=== PATIENT | female | born 1945 | race Caucasian/White ===

== ENCOUNTER 2017-04-19 01:25 | Emergency (ER) | payer OTHER ==
[~2017-04-19] VITALS: Ht 152.4 cm; Wt 71.8 kg
[~2017-04-19 01:25] MED LIST: ACET1TAB84 PO; ATOR10TA88 PO; ATV/1 PO; CLIN1GEL5 TOP; GABA-113 PO; LEVO75TA5 PO; LSN/10125 PO; RSTOPS OP; SENN8.6T7 PO; [UNRECOGNIZED DRUG - OTHER] OP
[2017-04-19 01:27] VITALS: TEMP 36.7; Ht 152.4 cm; Wt 71.8 kg
[2017-04-19] MEDS ORDERED: ONDANSETRON INJ 2 MG/ML 2 ML VIAL IV STA (01:42)
[2017-04-19] MEDS ORDERED: MoRPHine SULFATE 2 MG/ML CARP IV STA (01:42)
[2017-04-19] MEDS ORDERED: METHYLPREDNISOLONE 125 MG VIAL IV STA (01:42)
[2017-04-19] MEDS ORDERED: LORAZEPAM 2 MG/ML 1 ML VIAL IV STA (01:42)
--- NOTE | 2017-04-19 01:50 | EMERGENCY ROOM VISIT NOTE ---
History Report prepared by Mendoza: Paulie Florez Under the Supervision of: Dr. Stacie Zurita M.D. First contact with patient: 01:36 Chief Complaint: NECK PAIN Stated Complaint: NECK PAIN History of Present Illness The patient is a 72 year old female who presents to the Emergency Room with complaints of intermittent left-sided neck pain beginning yesterday. The patient states she woke up last night with head and neck pain. She reports her discomfort lasted for a few hours, but has returned. The patient notes her pain intermittently radiates to her left shoulder and left ear. She states rotating her neck increases her discomfort. She notes she was experiencing abdominal pain yesterday, but it has resolved. The patient denies fevers, vomiting, injury or trauma to the neck, and falling. She reports he has been taking arthritis Tylenol, but it is not helping. The patient notes her last dose of Tylenol was 5 hours ago. Source of History: patient Onset: yesterday Position: neck Timing: intermittent Modifying Factors (Worsening): movement (of neck) Associated Symptoms: + headache, No fevers, No vomiting Note: Associated symptoms: left shoulder and left ear pain Denies: injury or trauma to the neck and falling Review of Systems See HPI for pertinent positives & negatives. A total of 10 systems reviewed and were otherwise negative. Past Medical & Surgical Medical Problems: (1) CKD (chronic kidney disease), stage III (2) Dyslipidemia (3) HTN (hypertension) (4) Hypothyroidism Surgical Problems: (1) Heel spur (2) S/P appendectomy (3) S/P cholecystectomy (4) S/P lumbar fusion (5) S/P rotator cuff repair (6) S/P tonsillectomy Family History Cancer Gallbladder disease Lung disease Social History Smoking Status: Former Smoker Marital Status: Housing Status: lives with significant other Occupation Status: retired Current/Historical Medications Scheduled Acetaminophen (Tylenol Arthritis Ext Rel), 2 TAB PO BID Atorvastatin (Lipitor), 10 MG PO 3XWK Cyclosporine (Restasis Eye Drops), 1 DROP OP QAM Gabapentin (Neurontin), 300 MG PO HS Hctz/Lisinopril (Lisinopril/Hctz 10/12.5 Mg), 1 TAB PO DAILY Levothyroxine Sodium (Levothyroxine Sodium), 75 MCG PO QAM Lorazepam (Ativan), 1 MG PO HS Prednisone (Prednisone), 40 MG PO DAILY Sennosides-Docusate Sodium (Senokot S), 2 TAB PO HS [Duratears Op ], 1 DROP OP HS Scheduled PRN Clindamycin Phosphate (Topical (Clindamycin Phosphate), 1 APPLN TOP BID PRN for ROSACIA Cyclobenzaprine Hcl (Flexeril), 1 TAB PO TID PRN for spasm Allergies Coded Allergies: No Known Allergies (Unverified , 06/14/16) Physical Exam Vital Signs Date Time Temp Pulse Resp B/P (MAP) Pulse Ox O2 Delivery O2 Flow Rate FiO2 04/19/17 04:09 57 04/19/17 03:41 58 18 134/74 93 Room Air 04/19/17 01:27 36.7 67 20 149/80 95 Room Air Physical Exam Vital signs reviewed. General: Well-appearing 72 year old female, in no significant distress. HEENT: No scleral icterus, PERRLA, neck supple. Atraumatic. Discomfort with rotation of the neck. No rah appreciated, tenderness with forward flexion of neck. Cardiovascular: Regular rate and rhythm, no extra sounds. Pulmonary: Clear to auscultation bilaterally, normal work of breathing. Abdomen: Soft, nontender, nondistended, positive bowel sounds. Musculoskeletal: Atraumatic, no peripheral edema. Tenderness over the left trapezius muscle and the base of the occiput. Neurologic: Patient awake alert and oriented x 3, full strength in all 4 extremities. Cranial nerves 2 through 12 grossly intact. Skin: Warm, dry, no rash Medical Decision & Procedures ER Provider Diagnostic Interpretation: CT results as stated below per my review and radiologist interpretation: CT C SPINE: Normal alignment of cranial-cervical junction. Severe atlantodental osteoarthritis. No acute fractures or malalignment. Mild C4-C5, severe C5-C6 and C6-C7 disc degeneration. Posterior disc osteophyte complex at C5-C6 with mild spinal stenosis. Posterior disc and osteophyte at C6- C7 with at least mild spinal stenosis. Evaluation somewhat limited by because of artifact at lower cervical and upper thoracic spine. Minimal osseous foraminal narrowings. Severe right C6-C7 facet arthropathy. No prevertebral soft tissue swelling or paraspinous hematoma. Emphysema. Mixed lucency and sclerosis in the sphenoid body, most likely related to arrested pneumatization of the sphenoid sinuses. Radiologist: Peter Brooks MD Study ready at 0219 and initial results transmitted at 0231. CT HEAD: No acute intracranial hemorrhage, transcortical infarction or mass. Mild bilateral periventricular white matter low attenuation, most compatible with chronic small vessel ischemic disease. No acute fractures. Visualized paranasal sinuses and mastoids are clear. Hypoplastic left maxillary sinus. Remote bilateral cataract surgery. Radiologist: Peter Brooks MD Study ready at 0219 and initial results transmitted at 0235. Laboratory Results 04/19/17 02:13 Red Blood Count 3.77, Mean Corpuscular Volume 86.7, Mean Corpuscular Hemoglobin 27.6, Mean Corpuscular Hemoglobin Concent 31.8, Mean Platelet Volume 9.5, Neutrophils (%) (Auto) 54.1, Lymphocytes (%) (Auto) 29.2, Monocytes (%) (Auto) 10.1, Eosinophils (%) (Auto) 5.9, Basophils (%) (Auto) 0.6, Neutrophils # (Auto ) 3.92, Lymphocytes # (Auto) 2.12, Monocytes # (Auto) 0.73, Eosinophils # (Auto ) 0.43, Basophils # (Auto) 0.04 04/19/17 02:13 Test 04/19/17 02:13 White Blood Count 7.25 K/uL (4.8-10.8) Red Blood Count 3.77 M/uL (4.2-5.4) Hemoglobin 10.4 g/dL (12.0-16.0) Hematocrit 32.7 % (37-47) Mean Corpuscular Volume 86.7 fL (80-100) Mean Corpuscular Hemoglobin 27.6 pg (25-34) Mean Corpuscular Hemoglobin Concent 31.8 g/dl (32-36) Platelet Count 229 K/uL (130-400) Mean Platelet Volume 9.5 fL (7.4-10.4) Neutrophils (%) (Auto) 54.1 % Lymphocytes (%) (Auto) 29.2 % Monocytes (%) (Auto) 10.1 % Eosinophils (%) (Auto) 5.9 % Basophils (%) (Auto) 0.6 % Neutrophils # (Auto) 3.92 K/uL (1.4-6.5) Lymphocytes # (Auto) 2.12 K/uL (1.2-3.4) Monocytes # (Auto) 0.73 K/uL (0.11-0.59) Eosinophils # (Auto) 0.43 K/uL (0-0.5) Basophils # (Auto) 0.04 K/uL (0-0.2) RDW Standard Deviation 42.2 fL (36.4-46.3) RDW Coefficient of Variation 13.2 % (11.5-14.5) Immature Granulocyte % (Auto) 0.1 % Immature Granulocyte # (Auto) 0.01 K/uL (0.00-0.02) Anion Gap 8.0 mmol/L (3-11) Est Creatinine Clear Calc Drug Dose 34.6 ml/min Estimated GFR () 47.5 Estimated GFR (Non- 41.0 BUN/Creatinine Ratio 19.0 (10-20) Calcium Level 9.2 mg/dl (8.5-10.1) Total Bilirubin 0.3 mg/dl (0.2-1) Direct Bilirubin < 0.1 mg/dl (0-0.2) Aspartate Amino Transf (AST/SGOT) 16 U/L (15-37) Alanine Aminotransferase (ALT/SGPT) 17 U/L (12-78) Alkaline Phosphatase 149 U/L (45-117) Total Protein 7.0 gm/dl (6.4-8.2) Albumin 3.4 gm/dl (3.4-5.0) Laboratory results per my review. Medications Administered Medications (Trade) Dose Ordered Sig/Farhana Route Start Time Stop Time Status Last Admin Dose Admin Cyclobenzaprine HCl (Flexeril Tab) 5 mg NOW STAT PO 04/19/17 03:31 04/19/17 03:32 DC 04/19/17 03:49 5 MG Acetaminophen/ Hydrocodone Bitart ([place] 5/325mg Home Pack) 1 homepack UD ONCE PO 04/19/17 04:00 04/19/17 04:01 DC 04/19/17 04:00 1 HOMEPACK ED Course 0141: Past medical records reviewed. The patient was evaluated in room B03B. A complete history and physical examination was performed. 0142: Ordered Lorazepam 0.5mg IV, Solu-Medrol IV 125mg IV, Ondansetron HCl 4mg IV, Morphine Sulfate 2mg IV 0329: Upon reevaluation, the patient appeared to have improvement of her symptoms. She still has some minor discomfort. I discussed findings with her. She verbalized agreement of the treatment plan. The patient will be discharged home when she receives her medication. 0331: Ordered Flexeril Tab 2mg PO 0400: Ordered Hydrocodone Bitart/Acetaminophen 1 homepack PO Medical Decision The patient is a 72 year old female who presents to the ED with complaints of left-sided neck pain. Differentials include torticollis, cervical radiculopathy , cervical fracture, disc herniation, meningitis, shingles. This patient was evaluated and appeared to be in no significant distress. IV access was obtained and laboratory work was drawn. Patient was medicated with IV morphine, IV Ativan and IV Solu-Medrol. She had minimal improvement of symptoms. The patient continued to complain of discomfort and was medicated with 5 mg of oral Flexeril. CT scan of the neck was performed and is read as above. There is significant degenerative change and is likely contributing to the patient's torticollis. CT scan of the head was performed due to the headache and is negative. Patient was discharged with a prednisone taper and Flexeril to be used as needed. She was given a [place] home pack. The patient will follow-up with her physician this week and return to the ER for worsening of symptoms or any medical concerns. Medication Reconcilliation Current Medication List: was personally reviewed by me Blood Pressure Screening Patient's blood pressure: Elevated blood pressure Blood pressure disposition: Elevated BP felt to be situational Impression Primary Impression: Torticollis, acute Scribe Attestation The scribe's documentation has been prepared under my direction and personally reviewed by me in its entirety. I confirm that the note above accurately reflects all work, treatment, procedures, and medical decision making performed by me. Departure Information Dispostion Home / Self-Care Prescriptions Cyclobenzaprine Hcl (FLEXERIL) 5 Mg Tab 1 TAB PO TID Y for spasm for 7 Days, #21 TAB Prov: Stacie Zurita M.D. 04/19/17 Prednisone (Prednisone) 20 Mg Tab 40 MG PO DAILY, #8 TAB Prov: Stacie Zurita M.D. 04/19/17 Referrals Sandra Rm M.D. (PCP) Forms HOME CARE DOCUMENTATION FORM, IMPORTANT VISIT INFORMATION, WORK / SCHOOL INSTRUCTIONS Patient Instructions My [facility] Additional Instructions Diagnosis: Torticollis Prednisone 40 mg for 4 more days Flexeril 5 mg three times daily for 7 days NEEDED. [place] 1 tab every 6 hours as needed for severe pain. Warm compresses and gentle stretching. Follow up with your doctor this week for reevaluation. Return to the ED for worsening of symptoms or any medical concerns.
[2017-04-19 03:28] LABS: BASO % 0.6 %; BASO ABS # 0.04 K/uL (0-0.2); COMPLETE YES; EOS % 5.9 %; HEMATOCRIT 32.7 % (37-47); IG% 0.1 %; LYMPH % 29.2 %; LYMPH ABS # 2.12 K/uL (1.2-3.4); MEAN CELL VOLUME 86.7 fL (80-100); MEAN CORPUSCULAR HEMOGLOBIN 27.6 pg (25-34); MEAN CORPUSCULAR HGB CONC 31.8 g/dl (32-36); MEAN PLATELET VOLUME 9.5 fL (7.4-10.4); MONO % 10.1 %; NEUT % 54.1 %; PLATELET COUNT 229 K/uL (130-400); RED BLOOD COUNT 3.77 M/uL (4.2-5.4); WHITE BLOOD COUNT 7.25 K/uL (4.8-10.8)
[2017-04-19] MEDS ORDERED: CYCLOBENZAPRINE HCL 10 MG TAB PO STA (03:31)
[2017-04-19 03:41] VITALS: BP 134/74; O2SAT 93
[2017-04-19] MEDS ORDERED: HYDR-5688 PO (03:52)
[2017-04-19] MEDS ORDERED: PRED20TA PO (03:52)
[2017-04-19] MEDS ORDERED: CYCL5TAB PO (03:54)
[2017-04-19 03:58] LABS: BLOOD UREA NITROGEN 25 mg/dl (7-18); GLUCOSE 99 mg/dl (70-99); SODIUM 138 mmol/L (136-145)
[2017-04-19 03:59] LABS: CALCIUM 9.2 mg/dl (8.5-10.1); CARBON DIOXIDE 27 mmol/L (21-32); CHLORIDE 103 mmol/L (98-107); POTASSIUM 3.8 mmol/L (3.5-5.1)
[2017-04-19 04:00] LABS: ALKALINE PHOSPHATASE 149 U/L (45-117); ALT/SGPT 17 U/L (12-78); AST/SGOT 16 U/L (15-37)
[2017-04-19] MEDS ORDERED: NORCO 5/325MG HOME PACK PO ONE (04:00)
[2017-04-19 04:09] VITALS: PULSE 57
--- NOTE | 2017-04-19 07:31 | DIAGNOSTIC IMAGING REPORT ---
CERVICAL SPINE W/O CLINICAL HISTORY: 72 years-old Female presenting with L neck pain. TECHNIQUE: Multidetector CT of the cervical spine was performed without the use of intravenous contrast. IV contrast: None. A dose lowering technique was used consistent with the principles of ALARA (as low as reasonably achievable). COMPARISON: None. CT DOSE (mGy.cm): The estimated cumulative dose is 411.07 mGycm. FINDINGS: Cornetist topogram: Right shoulder reverse arthroplasty noted. Normal cervical lordosis. Multilevel degenerative changes most pronounced at C5-6, where there is intervertebral disc height loss and endplate sclerosis. Vertebral bodies maintain normal height and alignment. Small disc osteophyte complexes noted from C4-5 through C6-7. Degenerative changes of the atlantoaxial articulation. Disc osteophyte complex and uncovertebral hypertrophy result in mild right osseous neuroforaminal narrowing at C5-6 and minimal osseous neural foraminal narrowing on the left at C6-7. No osseous spinal canal narrowing. No acute fracture or subluxation. Regional soft tissues within normal limits. Lung apices demonstrate emphysema. IMPRESSION: 1. Multilevel degenerative changes most severe at C5-6, where there is mild right osseous neural foraminal narrowing. Electronically signed by: Javier Colon M.D. 04/19/2017 6:59 AM Dictated Date/Time: 04/19/2017 6:55 AM
--- NOTE | 2017-04-19 07:31 | DIAGNOSTIC IMAGING REPORT ---
CT HEAD WITHOUT CONTRAST (CT) CLINICAL HISTORY: Left-sided headache COMPARISON STUDY: No previous studies for comparison. TECHNIQUE: Axial CT of the brain is performed from the vertex to the skull base. IV contrast was not administered for this examination. A dose lowering technique was utilized adhering to the principles of ALARA. CT DOSE: 638.56 mGycm FINDINGS: No intra or extra-axial mass lesions are visualized. There is no CT evidence of acute cortical infarction. There is no evidence of midline shift. There is no acute hemorrhage. No calvarial fractures are visualized. There are minimal white matter hypodensities likely on a small vessel basis. There is no evidence of pathologic ventricular dilatation. There is no evidence of acute sinusitis IMPRESSION: No acute intracranial findings Electronically signed by: Clay Swan M.D. 04/19/2017 6:31 AM Dictated Date/Time: 04/19/2017 6:30 AM
== END 2017-04-19 04:00 | disposition home or self-care (01) ==
LOC: C.EDB 01:26
DX: M43.6 Torticollis (principal); M54.2 Cervicalgia; I12.9 Hypertensive chronic kidney disease with stage 1 through stage 4 chronic kidney disease, or unspecified chronic kidney disease; N18.3 Chronic kidney disease, stage 3 (moderate); E03.9 Hypothyroidism, unspecified; E78.5 Hyperlipidemia, unspecified; Z79.899 Other long term (current) drug therapy; Z87.891 Personal history of nicotine dependence

== ENCOUNTER 2017-12-02 15:52 | Emergency (ER) | payer OTHER ==
[~2017-12-02] VITALS: Ht 152.4 cm; Wt 70.9 kg
[~2017-12-02 15:52] MED LIST changes: +ATOR10TA82 PO; -ATOR10TA88 PO
[2017-12-02 15:55] VITALS: TEMP 36.6; Ht 152.4 cm; Wt 70.9 kg
[2017-12-02] MEDS ORDERED: ONDANSETRON INJ 2 MG/ML 2 ML VIAL IV STA (16:03)
[2017-12-02] MEDS ORDERED: SODIUM CHLORIDE 0.9% 1000ML 500 ML IV STA (16:03)
[2017-12-02] MEDS ORDERED: SODIUM CHLORIDE 0.9% 1000ML 1,000 ML IV STA (16:03)
[2017-12-02] MEDS ORDERED: FENTANYL CITRATE INJ 50 MCG/1 ML 2 ML VIAL IV PRN (16:15)
--- NOTE | 2017-12-02 16:24 | DIAGNOSTIC IMAGING REPORT ---
CHEST ONE VIEW PORTABLE HISTORY: Generalized abdominal pain. COMPARISON: Chest 09/22/2015. FINDINGS: The lungs are clear. Cardiac silhouette is normal in size. No pleural effusions. No pneumothorax. Right shoulder prosthesis. IMPRESSION: No acute process. Electronically signed by: Slim Horn M.D. 12/02/2017 4:23 PM Dictated Date/Time: 12/02/2017 4:22 PM
[2017-12-02] MEDS ORDERED: MULT-190 PO (16:39)
[2017-12-02 16:41] LABS: EOS % 0.1 %; EOS ABS # 0.01 K/uL (0-0.5); HEMATOCRIT 39.1 % (37-47); HEMOGLOBIN 13.1 g/dL (12.0-16.0); IG# 0.02 K/uL (0.00-0.02); LYMPH % 11.7 %; LYMPH ABS # 0.88 K/uL (1.2-3.4); MEAN CELL VOLUME 85.7 fL (80-100); MEAN CORPUSCULAR HEMOGLOBIN 28.7 pg (25-34); MEAN CORPUSCULAR HGB CONC 33.5 g/dl (32-36); MEAN PLATELET VOLUME 9.3 fL (7.4-10.4); MONO % 6.9 %; MONO ABS # 0.52 K/uL (0.11-0.59); NEUT ABS # 6.08 K/uL (1.4-6.5); PLATELET COUNT 233 K/uL (130-400); RED CELL DISTRIBUTION WIDTH CV 14.1 % (11.5-14.5); RED CELL DISTRIBUTION WIDTH SD 43.7 fL (36.4-46.3); WHITE BLOOD COUNT 7.51 K/uL (4.8-10.8)
[2017-12-02 16:59] LABS: ALBUMIN 3.5 gm/dl (3.4-5.0); ALT/SGPT 24 U/L (12-78); AST/SGOT 27 U/L (15-37); BLOOD UREA NITROGEN 34 mg/dl (7-18); CALCIUM 8.8 mg/dl (8.5-10.1); CARBON DIOXIDE 30 mmol/L (21-32); CREATININE 1.75 mg/dl (0.60-1.20); GLUCOSE 104 mg/dl (70-99); LIPASE 320 U/L (73-393); POTASSIUM 3.1 mmol/L (3.5-5.1); SODIUM 137 mmol/L (136-145)
[2017-12-02 17:04] LABS: ALKALINE PHOSPHATASE 138 U/L (45-117); TOTAL PROTEIN 7.6 gm/dl (6.4-8.2)
[2017-12-02] MEDS ORDERED: POTASSIUM CHLORIDE 10 MEQ TABCR PO STA (17:15)
[2017-12-02] MEDS ORDERED: FAMOTIDINE 20MG/5ML IV PUSH IV STA (17:15)
--- NOTE | 2017-12-02 17:20 | DIAGNOSTIC IMAGING REPORT ---
ABDOMEN AND PELVIS CT WITHOUT CONTRAST CT DOSE: 481.51 mGy.cm HISTORY: Upper abdominal pain, vomiting TECHNIQUE: Multiaxial CT images of the abdomen and pelvis were performed without contrast. A dose lowering technique was utilized adhering to the principles of ALARA. COMPARISON STUDY: None. FINDINGS: The lung bases are clear. No pneumoperitoneum. No pneumatosis. Posterior fusion of the lower lumbar spine. A 6 mm sclerotic focus within the T11 vertebral body. This likely represents a bone island. The unenhanced liver, spleen, adrenal glands, pancreas, and kidneys are unremarkable. No left-sided hydronephrosis. Mild urothelial thickening within the right renal pelvis and mild fullness within the right renal collecting system without hydronephrosis. The bladder is decompressed and not well visualized but appears unremarkable. Best seen on image 288 there is a 11 x 6 mm calcification within the right side of the pelvis. This appears to be within the distal right ureter just beyond the level of the iliac vessels. The uterus and bilateral adnexa are unremarkable. Suboptimal evaluation for bowel pathology due to the lack of intravenous and oral contrast. Colonic diverticulosis. No bowel wall thickening or obstruction. Fluid-filled small bowel and colon. IMPRESSION: 1. Fluid-filled nondilated small and large bowel. This favors a gastroenteritis. 2. No bowel wall thickening or obstruction. 3. An 11 x 6 mm calcification within the right side of the pelvis which appears to be within the distal right ureter. There is mild fullness within the right renal collecting system without [place] hydronephrosis and mild urothelial thickening of the right renal pelvis. This could be reactive to the stone or due to a superimposed pyelitis. Recommend correlation with urinalysis. Electronically signed by: Slim Horn M.D. 12/02/2017 5:19 PM Dictated Date/Time: 12/02/2017 5:06 PM
[2017-12-02] MEDS ORDERED: SODIUM CHLORIDE 0.9% 500ML 500 ML IV STA (18:19)
--- NOTE | 2017-12-02 19:00 | EMERGENCY ROOM VISIT NOTE ---
History Report prepared by Mendoza: Lonny Prado Under the Supervision of: Dr. Leonard Coleman M.D. First contact with patient: 15:57 Chief Complaint: ABDOMINAL PAIN Stated Complaint: STOMACH AND CHEST PAIN History of Present Illness The patient is a 72 year old female who presents to the Emergency Room with complaints of worsening upper abdominal pain starting yesterday. The patient states that additionally last night she was nauseous and dry heaving, and then last night she had diarrhea all night, and then this morning she started to vomit. She notes that vomiting helped to relive the pain. The patient reports that she has been having some chest pain into her back. She states that the pain feels like her gall bladder, though she has a history of a cholecystectomy. The patient states that she did not eat anything unusual, and she has not been around anyone else that is sick. She took Mylanta with no relief, and she states that yesterday she had a headache. Pt denies LOC, fevers , chills, diaphoresis, visual changes, neck pain, breathing difficulties, melena , hematochezia, urinary symptoms, numbness, weakness, lymphadenopathy, rash, or other complaints. Source of History: patient Onset: yesterday Position: abdomen (upper) Symptom Intensity: 510 Timing: worsening Modifying Factors (Relieving): other (vomiting) Associated Symptoms: + chest pain, + nausea, + vomiting, + back pain, + diarrhea Review of Systems See HPI for pertinent positives and negatives. A total of ten systems were reviewed and were otherwise negative. Past Medical & Surgical Medical Problems: (1) CKD (chronic kidney disease), stage III (2) Dyslipidemia (3) HTN (hypertension) (4) Hypothyroidism Surgical Problems: (1) Heel spur (2) S/P appendectomy (3) S/P cholecystectomy (4) S/P lumbar fusion (5) S/P rotator cuff repair (6) S/P tonsillectomy Family History Cancer Gallbladder disease Lung disease Social History Smoking Status: Never Smoker Marital Status: Housing Status: lives with significant other Occupation Status: retired Current/Historical Medications Scheduled Atorvastatin (Lipitor), 10 MG PO 3XWK Gabapentin (Neurontin), 300 MG PO HS Hctz/Lisinopril (Lisinopril/Hctz 10/12.5 Mg), 1 TAB PO DAILY Levothyroxine Sodium (Levothyroxine Sodium), 75 MCG PO QAM Lorazepam (Ativan), 1 MG PO HS Ocuvite Preservision (Ocuvite Preservision), 1 TAB PO DAILY Scheduled PRN Clindamycin Phosphate (Topical (Clindamycin Phosphate), 1 APPLN TOP BID PRN for ROSACIA Hydrocodone/Acetaminophen 5MG/325MG ([place] 5MG/325MG), 1-2 TABS PO Q6H PRN for Pain Ondansetron Hcl (Zofran), 4 MG PO Q6H PRN for Nausea Allergies Coded Allergies: No Known Allergies (Unverified , 12/02/17) Physical Exam Vital Signs Date Time Temp Pulse Resp B/P (MAP) Pulse Ox O2 Delivery O2 Flow Rate FiO2 12/02/17 19:34 76 16 119/72 98 Room Air 12/02/17 18:51 74 16 107/49 98 Room Air 12/02/17 16:56 78 18 110/58 96 Room Air 12/02/17 15:55 36.6 83 16 110/66 99 Room Air Physical Exam GENERAL: Awake, alert, uncomfortable-appearing, in no distress HENT: Normocephalic, atraumatic. Oropharynx unremarkable. EYES: Normal conjunctiva. Sclera non-icteric. NECK: Supple. No nuchal rigidity. FROM. No masses. RESPIRATORY: Clear to auscultation. No wheezes. No rales. Normal respiratory effort. CARDIAC: Normal rate. Normal rhythm. No murmurs. No rubs. Extremities warm and well perfused. Pulses equal. No JVD. GI: Diffuse tenderness worse in the epigastrium. Soft, non-distended. No rebound or guarding. No masses. RECTAL: Deferred. MUSCULOSKELETAL: Atraumatic. Chest examination reveals no tenderness. The back is symmetrical on inspection without obvious abnormality. There is no CVA tenderness to palpation. No joint edema. LOWER EXTREMITIES: Calves are equal size bilaterally and non-tender. No edema. No discoloration. NEURO: Normal sensorium. No sensory or motor deficits noted. SKIN: No rash or jaundice noted. Medical Decision & Procedures ER Provider Diagnostic Interpretation: Radiology results as stated below per my review and radiologist interpretation: CHEST ONE VIEW PORTABLE HISTORY: Generalized abdominal pain. COMPARISON: Chest 09/22/2015. FINDINGS: The lungs are clear. Cardiac silhouette is normal in size. No pleural effusions. No pneumothorax. Right shoulder prosthesis. IMPRESSION: No acute process. Electronically signed by: Silm Horn M.D. 12/02/2017 4:23 PM Dictated Date/Time: 12/02/2017 4:22 PM ABDOMEN AND PELVIS CT WITHOUT CONTRAST CT DOSE: 481.51 mGy.cm HISTORY: Upper abdominal pain, vomiting TECHNIQUE: Multiaxial CT images of the abdomen and pelvis were performed without contrast. A dose lowering technique was utilized adhering to the principles of ALARA. COMPARISON STUDY: None. FINDINGS: The lung bases are clear. No pneumoperitoneum. No pneumatosis. Posterior fusion of the lower lumbar spine. A 6 mm sclerotic focus within the T11 vertebral body. This likely represents a bone island. The unenhanced liver, spleen, adrenal glands, pancreas, and kidneys are unremarkable. No left-sided hydronephrosis. Mild urothelial thickening within the right renal pelvis and mild fullness within the right renal collecting system without hydronephrosis. The bladder is decompressed and not well visualized but appears unremarkable. Best seen on image 288 there is a 11 x 6 mm calcification within the right side of the pelvis. This appears to be within the distal right ureter just beyond the level of the iliac vessels. The uterus and bilateral adnexa are unremarkable. Suboptimal evaluation for bowel pathology due to the lack of intravenous and oral contrast. Colonic diverticulosis. No bowel wall thickening or obstruction. Fluid-filled small bowel and colon. IMPRESSION: 1. Fluid-filled nondilated small and large bowel. This favors a gastroenteritis. 2. No bowel wall thickening or obstruction. 3. An 11 x 6 mm calcification within the right side of the pelvis which appears to be within the distal right ureter. There is mild fullness within the right renal collecting system without [place] hydronephrosis and mild urothelial thickening of the right renal pelvis. This could be reactive to the stone or due to a superimposed pyelitis. Recommend correlation with urinalysis. Electronically signed by: Slim Horn M.D. 12/02/2017 5:19 PM Dictated Date/Time: 12/02/2017 5:06 PM Laboratory Results 12/02/17 16:15 Red Blood Count 4.56, Mean Corpuscular Volume 85.7, Mean Corpuscular Hemoglobin 28.7, Mean Corpuscular Hemoglobin Concent 33.5, Mean Platelet Volume 9.3, Neutrophils (%) (Auto) 81.0, Lymphocytes (%) (Auto) 11.7, Monocytes (%) (Auto) 6.9, Eosinophils (%) (Auto) 0.1, Basophils (%) (Auto) 0.0, Neutrophils # (Auto) 6.08, Lymphocytes # (Auto) 0.88, Monocytes # (Auto) 0.52, Eosinophils # (Auto) 0.01, Basophils # (Auto) 0.00 12/02/17 16:15 Test 12/02/17 16:15 12/02/17 18:25 White Blood Count 7.51 K/uL (4.8-10.8) Red Blood Count 4.56 M/uL (4.2-5.4) Hemoglobin 13.1 g/dL (12.0-16.0) Hematocrit 39.1 % (37-47) Mean Corpuscular Volume 85.7 fL (80-100) Mean Corpuscular Hemoglobin 28.7 pg (25-34) Mean Corpuscular Hemoglobin Concent 33.5 g/dl (32-36) Platelet Count 233 K/uL (130-400) Mean Platelet Volume 9.3 fL (7.4-10.4) Neutrophils (%) (Auto) 81.0 % Lymphocytes (%) (Auto) 11.7 % Monocytes (%) (Auto) 6.9 % Eosinophils (%) (Auto) 0.1 % Basophils (%) (Auto) 0.0 % Neutrophils # (Auto) 6.08 K/uL (1.4-6.5) Lymphocytes # (Auto) 0.88 K/uL (1.2-3.4) Monocytes # (Auto) 0.52 K/uL (0.11-0.59) Eosinophils # (Auto) 0.01 K/uL (0-0.5) Basophils # (Auto) 0.00 K/uL (0-0.2) RDW Standard Deviation 43.7 fL (36.4-46.3) RDW Coefficient of Variation 14.1 % (11.5-14.5) Immature Granulocyte % (Auto) 0.3 % Immature Granulocyte # (Auto) 0.02 K/uL (0.00-0.02) Anion Gap 8.0 mmol/L (3-11) Est Creatinine Clear Calc Drug Dose 25.5 ml/min Estimated GFR () 33.1 Estimated GFR (Non- 28.6 BUN/Creatinine Ratio 19.1 (10-20) Calcium Level 8.8 mg/dl (8.5-10.1) Total Bilirubin 0.6 mg/dl (0.2-1) Direct Bilirubin 0.1 mg/dl (0-0.2) Aspartate Amino Transf (AST/SGOT) 27 U/L (15-37) Alanine Aminotransferase (ALT/SGPT) 24 U/L (12-78) Alkaline Phosphatase 138 U/L (45-117) Troponin I < 0.015 ng/ml (0-0.045) Total Protein 7.6 gm/dl (6.4-8.2) Albumin 3.5 gm/dl (3.4-5.0) Lipase 320 U/L (73-393) Urine Color YELLOW Urine Appearance CLEAR (CLEAR) Urine pH 5.0 (4.5-7.5) Urine Specific [place] 1.014 (1.000-1.030) Urine Protein NEG (NEG) Urine Glucose (UA) NEG (NEG) Urine Ketones NEG (NEG) Urine Occult Blood NEG (NEG) Urine Nitrite NEG (NEG) Urine Bilirubin NEG (NEG) Urine Urobilinogen NEG (NEG) Urine Leukocyte Esterase LARGE (NEG) Urine WBC (Auto) >30 /hpf (0-5) Urine RBC (Auto) 0-4 /hpf (0-4) Urine Hyaline Casts (Auto) 5-10 /lpf (0-5) Urine Epithelial Cells (Auto) 10-20 /lpf (0-5) Urine Bacteria (Auto) NEG (NEG) Laboratory results reviewed by me Medications Administered Medications (Trade) Dose Ordered Sig/Farhana Route Start Time Stop Time Status Last Admin Dose Admin Sodium Chloride 1,000 ml @ 125 mls/hr Q8H STAT IV 12/02/17 16:03 12/03/17 00:02 12/02/17 16:03 125 MLS/HR Sodium Chloride 500 ml @ 999 mls/hr Q31M STAT IV 12/02/17 16:03 12/02/17 16:33 DC 12/02/17 16:03 999 MLS/HR Ondansetron HCl (Zofran Inj) 4 mg NOW STAT IV 12/02/17 16:03 12/02/17 16:05 DC 12/02/17 16:31 4 MG Fentanyl Citrate (Fentanyl Inj) 50 mcg Q20M PRN IV 12/02/17 16:15 12/16/17 16:14 12/02/17 16:32 50 MCG Famotidine (Pepcid 20mg Iv Push) 20 mg ONE STAT IV 12/02/17 17:15 12/02/17 17:16 DC 12/02/17 17:30 20 MG Potassium Chloride (Klor-Con M10) 20 meq NOW STAT PO 12/02/17 17:15 12/02/17 17:16 DC 12/02/17 17:15 20 MEQ Sodium Chloride 500 ml @ 999 mls/hr Q31M STAT IV 12/02/17 18:19 12/02/17 18:49 DC 12/02/17 18:20 999 MLS/HR Ondansetron HCl (ZOFRAN ODT 4MG Home Pack) 1 homepack UD ONCE PO 12/02/17 19:30 12/02/17 19:31 DC 12/02/17 19:25 1 HOMEPACK Lidocaine HCl (Viscous Lidocaine 2% Soln) 20 ml STK-MED ONCE .ROUTE 12/02/17 19:23 12/02/17 19:24 DC 12/02/17 19:28 10 ML Al Hydroxide/Mg Hydroxide (Maalox Susp) 30 ml STK-MED ONCE .ROUTE 12/02/17 19:24 12/02/17 19:25 DC 12/02/17 19:30 30 ML ECG Per My Interpretation Indication: chest pain Rate (beats per minute): 83 Rhythm: normal sinus Findings: nonspecific-ST abn, left axis deviation, no ectopy ED Course 1557: The patient was evaluated in room B11. A complete history and physical exam was performed. 1603: Zofran 4mg IV, Sodium Chloride 500 ml @ 999 mls/hr IV, Sodium Chloride 1000 ml @ 125 mls/hr IV 1615: Fentanyl 50mcg IV 1715: Potassium Chloride 20meq PO, Famotidine 20mg IV 1716: I reevaluated the patient, and she feels better. She is getting a PO challenge and getting a urine sample. 1819: Sodium Chloride 500 ml @ 999 mls/hr IV 1917: Reassessed the patient and she feels well. She does note a little bit of reflux symptoms. She has had this in the past. GI cocktail ordered 1914: Discussed the case with urology, Dr. Forrest. Close outpatient follow-up was recommended. As the patient does not have a fever or white count antibiotics were not recommended. 1939: Patient reassessed and feels well. Reflux resolved. She desires to be discharged. Home pack of [place] and Zofran given. Medical Decision Prior records/ancillary studies reviewed. Triage Nursing notes reviewed and agree them. Additional history obtained from the family. The patient's history was concerning for nausea, vomiting, diarrhea, and abdominal pain. Differential diagnosis: Etiologies such as gastroenteritis, food borne illness, infections, appendicitis , diverticulitis, inflammatory bowel disease, GI bleed, biliary pathology, cardiac sources, renal colic, as well as others were entertained. Physical examination findings: As above. Mild diffuse but mostly focal epigastric tenderness to palpation ER treatment provided: IV hydration with NSS. IV Zofran IV fentanyl On reassessment the patient felt better. Patient was tolerating p.o. intake. Oral potassium GI cocktail Diagnostics interpretation by me: ECG: Normal sinus with left axis deviation. Nonspecific ST abnormality. When compared to September 22, [address] abnormalities worse in the lateral leads The labs revealed a normal CBC and chemistry panel except for slight hypokalemia and slight worsening of her renal function which is likely related to dehydration. Cardiac markers negative. Urine dip negative. Imaging studies: Chest x-ray and CT scan as above The patient is doing very well after the above treatment. She is tolerating oral fluids and crackers. She was questioned about the possible right sided calculus. She does note having back pain issues for some time but noted that they were worse over the last few days. It is possible that she was passing a stone. There is no clear signs of infection. This was discussed with urology and conservative management was recommended. She does have diarrhea and this is notable on CT with the fluid filled colon. Cardiac etiologies seem unlikely given the findings and negative troponin. Her epigastric discomfort is been present since yesterday. Conservative management was discussed. The patient feels comfortable. Patient will be referred to urology as well regarding the stone. Prescription Zofran was discussed. Analgesia discussed as well. By the evaluation outlined above other emergent etiologies such as those listed in the differential, as well as others, were deemed relatively unlikely. The patient was educated about the findings as listed above. All questions were answered and the patient was pleased with the treatment. Return instructions were outlined and the patient was discharged in stable condition. The patient was referred to her PCP and urology for follow-up for a recheck of the current condition. Medication Reconcilliation Current Medication List: was personally reviewed by me Blood Pressure Screening Patient's blood pressure: Normal blood pressure Consults Consulting Physician: Dr. Forrest Discussed case, presentation, laboratory and diagnostic imaging. As the patient had an atypical presentation for ureterolithiasis, lacks fever, and has no white count antibiotic or urgent intervention was felt to be not appropriate. Close follow-up in the office was felt to be the appropriate management. Patient feels comfortable with this plan. She will call the office tomorrow. Impression Primary Impression: Nausea vomiting and diarrhea Additional Impression: Ureterolithiasis Scribe Attestation The scribe's documentation has been prepared under my direction and personally reviewed by me in its entirety. I confirm that the note above accurately reflects all work, treatment, procedures, and medical decision making performed by me. Departure Information Dispostion Home / Self-Care Prescriptions Ondansetron Hcl (ZOFRAN) 4 Mg Tab 4 MG PO Q6H Y for Nausea, #6 TAB Prov: Leonard Coleman MD 12/02/17 Hydrocodone/Acetaminophen 5MG/325MG ([place] 5MG/325MG) Tab 1-2 TABS PO Q6H Y for Pain, #10 TAB Prov: Leonard Coleman MD 12/02/17 Referrals Sandra Rm M.D. (PCP) Patient Instructions My [facility] Additional Instructions DO NOT drive, drink alcohol, operate machinery, or perform dangerous activities today. You were given medications in the ER that can affect your ability to safely function or operate a vehicle. Zofran(odansetron) tablets 4mg: Take one and allow it to dissolve in your mouth every four hours as needed for nausea or vomiting. Acetaminophen(Tylenol) may be used for fever or mild pain. Use 1000mg every eight hours as needed. Avoid using more than 3000mg in a 24 hour period. This is available over the counter. Hydrocodone/acetaminophen 5 mg/325 mg: Take 1 or 2 pills every 6 hours as needed for severe pain. Do not mix with other doses of Tylenol. If you take more than 2-3 doses it is recommended to use an [id number] stool softener such as Colace to avoid constipation. Do not drive if taking. Do not drink alcohol with this medication. Read all the package inserts or medication information paperwork provided. If you have any questions or concerns call your primary provider, pharmacist or the ER for assistance. Strain your urine and collect all the stones or debris for the follow up appointment. Rest and avoid strenuous activity until your symptoms resolve. Drink plenty of fluids. Continue current medications. Return to the ER for worsening abdominal or back pain, vomiting, fevers, passing out, chest pain, or as needed. Follow up with [facility] tomorrow, [phone], to arrange a visit Follow-up with your primary care office tomorrow to set an appointment for this week for recheck. Problem Qualifiers
[2017-12-02] MEDS ORDERED: GI COCKTAIL PO STA (19:18)
[2017-12-02] MEDS ORDERED: LIDOCAINE HCL 2% VISC SOLN 20 ML UDC ONE (19:23)
[2017-12-02] MEDS ORDERED: ALUMINUM/MAGNESIUM SUSP 30 ML UDC ONE (19:24)
[2017-12-02] MEDS ORDERED: ONDANSETRON HOME PACK 4MG OD TAB PO ONE (19:30)
[2017-12-02] MEDS ORDERED: HYDR-5688 PO (19:33)
[2017-12-02] MEDS ORDERED: ONDA4TAB46 PO (19:33)
[2017-12-02 19:34] VITALS: BP 119/72; PULSE 76; O2SAT 98
[2017-12-02] MEDS ORDERED: NORCO 5/325MG HOME PACK PO ONE (19:45)
--- NOTE | 2017-12-04 18:32 | Pharmacy Progress Note ---
ED Pharmacist Culture FollowUp Date of Service: December 04, 2017. Called urology [phone] to see if patient has an appointment - she is scheduled for one, but not until December 20. Called patient regarding urine culture. Patient noted slow improvement since being here, but persistent diarrhea. She notes she has felt warm, but has taken her temperature during those times and it has been normal. Patient denied increased pain or continued vomiting. She notes she has been able to urinate and is straining her urine but has not noticed a stone. Counseled that patient should be started on outpatient antibiotics but that she should return to the ED if she develops fever, increased pain, renewed vomiting or any worsening of symptoms. Patient acknowledged understanding and expressed comfort with the plan. Prescription for ciprofloxacin 250 mg po BID x7 days, 0 refill, called to [facility] at the patient's request. Case discussed with Dr. Miller, who is the prescribing provider.
== END 2017-12-02 19:50 | disposition home or self-care (01) ==
LOC: C.EDB 15:53
DX: N20.1 Calculus of ureter (principal); R19.7 Diarrhea, unspecified; N18.3 Chronic kidney disease, stage 3 (moderate); I12.9 Hypertensive chronic kidney disease with stage 1 through stage 4 chronic kidney disease, or unspecified chronic kidney disease; E03.9 Hypothyroidism, unspecified; E78.5 Hyperlipidemia, unspecified; Z90.49 Acquired absence of other specified parts of digestive tract; Z79.899 Other long term (current) drug therapy; Z83.79 Family history of other diseases of the digestive system

== ENCOUNTER 2019-09-04 01:25 | Inpatient (IN) ==
--- OUTSIDE RECORDS SUMMARY | 2019-09-04 01:28 | External Medical Summary | Continuity of Care Document ---
:1945 Author Name Clau Farias, Provider Address Unavailable Unavailable , Care Team Providers Name Role Phone Unavailable Unavailable Unavailable WILDER BROOKS Mary Grace Unavailable Unavailable Unavailable Unavailable Unavailable Problems Calculus of kidney (592.0) (N20.0) Hypertension (401.9) (I10) Nephrolithiasis (592.0) (N20.0) High cholesterol (272.0) (E78.00) Hydronephrosis (591) (N13.30) Gross hematuria (599.71) (R31.0) Ureteric stone (592.1) (N20.1) Arthritis (716.90) (M19.90) Allergies and Adverse Reactions No Known Drug Allergies (Allergy) Medications LORazepam 1 MG Oral Tablet , M.D. Refills: 0 Lisinopril-hydroCHLOROthiazide 20-12.5 MG Oral Tablet , M.D. Refills: 0 Oxybutynin Chloride 5 MG/5ML Oral Syrup , M.D. Refills: 0 Procedures History of Back Surgery Status: Complete d History of Shoulder Surgery Status: Comp leted History of Section Status: Comp leted History of gallbladder surgery Status: C ompleted Immunizations Immunizations not documented Family History Mother Family history of colon cancer (V16.0) (Z80.0) Status: Activ e Family history of kidney stones (V18.69) (Z84.1) Status: Act theo Social History - Smoking Status Former smoker Plan of Treatment Planned Observations Planned Goals not documented Results No Known Results Results not documented Encounters Appointment; Chase Barriga M.D. 11-Jan-2018 11:20 Encounter Diagnosis: Problem not documented Appointment; Hank Wall II, DO 09-Jan-2018 11:20 Encounter Diagnosis: Problem not documented Appointment; Hank Wall II, DO 20-Dec-2017 11:00 Encounter Diagnosis: Problem not documented
--- OUTSIDE RECORDS SUMMARY | 2019-09-04 01:28 | External Medical Summary | Continuity of Care Document ---
:1945 Author Name Clau Farias, Provider Address Unavailable Unavailable , Care Team Providers Name Role Phone Unavailable Unavailable Unavailable CHIO BROOKSVirgil Brody Unavailable Unavailable Unavailable Unavailable Unavailable Problems Nephrolithiasis (592.0) (N20.0) Arthritis (716.90) (M19.90) Hypertension (401.9) (I10) Calculus of kidney (592.0) (N20.0) High cholesterol (272.0) (E78.00) Hydronephrosis (591) (N13.30) Ureteric stone (592.1) (N20.1) Gross hematuria (599.71) (R31.0) Allergies and Adverse Reactions No Known Drug [...] documented Family History Mother Family history of kidney stones (V18.69) (Z84.1) Status: Act theo Family history of colon cancer (V16.0) (Z80.0) Status: Activ e Social History - Smoking Status Former smoker [...]
[2019-09-04 02:16] LABS: Basophils # (auto) 0.03 K/uL (0-0.2); Basophils % (auto) 0.3 %; Eosinophils # (auto) 0.24 K/uL (0-0.5); Eosinophils % (auto) 2.3 %; Hematocrit (blood only) 36.4 % (37-47); Hemoglobin 11.9 g/dL (12.0-16.0); Immature Granulocytes # (auto) 0.06 K/uL (0.00-0.02); Immature Granulocytes % (auto) 0.6 %; Lymphocytes # (auto) 1.43 K/uL (1.2-3.4); Lymphocytes % (auto) 13.6 %; Mean Corpuscular Hemoglobin 28.7 pg (25-34); Mean Corpuscular Hgb Conc 32.7 g/dL (32-36); Mean Corpuscular Volume 87.7 fL (80-100); Mean Platelet Volume 10.2 fL (7.4-10.4); Monocytes # (auto) 1.14 K/uL (0.11-0.59); Monocytes % (auto) 10.9 %; Neutrophils % (auto) 72.3 %; Platelet Count 230 K/uL (130-400); RDW Coefficient of Variation 13.5 % (11.5-14.5); RDW Standard Deviation 43.4 fL (36.4-46.3); Red Blood Count 4.15 M/uL (4.2-5.4)
[2019-09-04] MEDS: SODIUM CHLORIDE 0.9% 1000ML 1,000 ML IV SCH ×2 (02:18→07:09)
[2019-09-04] MEDS ORDERED: ALBUT/IPRATROP 3MG/0.5MG NEB 3 ML VIAL NEB STA ×2 (02:18→04:27)
[2019-09-04 02:42] LABS: Alanine Aminotransferase 40 U/L (12-78); Albumin Globulin Ratio 0.6 (0.9-2); Albumin Level 2.9 gm/dl (3.4-5.0); Alkaline Phosphatase 168 U/L (45-117); Aspartate Aminotransferase 51 U/L (15-37); BUN Creatinine Ratio 12.6 (10-20); Bilirubin,Total 0.4 mg/dl (0.2-1); Blood Urea Nitrogen 16 mg/dl (7-18); Calcium 9.4 mg/dl (8.5-10.1); Carbon Dioxide 26 mmol/L (21-32); Chloride 102 mmol/L (98-107); Creatinine Clr Calc Pharmacy 34.4 ml/min; Est GFR (African American) 47.7; Est GFR (Non-African American) 41.1; Globulin 4.5 gm/dl (2.5-4.0); Glucose 110 mg/dl (70-99); NT Pro B Type Natriuretic Pept 366 pg/ml (0-900); Sodium 135 mmol/L (136-145); Total Protein 7.4 gm/dl (6.4-8.2); Troponin I < 0.015 ng/ml (0-0.045)
[2019-09-04 02:48] LABS: Influenza A virus by PCR Neg for Influ A (Neg); Influenza B virus by PCR Neg for Influ B (Neg)
[2019-09-04] MEDS ORDERED: OPTIRAY 320 125ml IV PRN (03:23)
[2019-09-04 03:35] LABS: Appearance Urine Clear (Clear); Bacteria Urine Automated Negative (Negative); Bilirubin Urine Negative (Negative); Blood Urine Trace (Negative); Cast Urine Automated 0 /lpf (0-5); Color Urine Yellow; Glucose Urine UA Negative (Negative); Ketones Urine Negative (Negative); Leukocyte Esterase Urine 2+ (Negative); Nitrite Urine Negative (Negative); Protein Urine 1+ (Negative); RBC Urine Automated 0-4 /hpf (0-4); Urobilinogen Urine Negative (Negative)
[2019-09-04] MEDS ORDERED: cefTRIAXone SODIUM 1,000 MG/50 ML BAG IV STA (03:58)
[2019-09-04] MEDS ORDERED: AZITHROMYCIN 250 MG TAB PO ONE (03:58)
[2019-09-04] MEDS ORDERED: SODIUM CHLORIDE 0.9% 1000ML 1,000 ML IV ONE ×2 (03:58→06:30)
[2019-09-04 04:38] LABS: Base Excess ABG -0.6 mEq/L (-9-1.8); HCO3 ABG 25 mmol/L (19-24); PCO2 ABG 42 mmHg (35-46); PO2 ABG 54 mmHg (80-95); pH ABG 7.38 (7.35-7.45)
[2019-09-04] MEDS ORDERED: methylPREDNISolone 40 MG in SYRINGE 0 ML IV STA (04:41)
[2019-09-04 04:48] LABS: Allen Test POS (Pos)
[2019-09-04 04:49] LABS: Oxygen Saturation ABG 88.4 % (90-95)
[2019-09-04] MEDS ORDERED: METOPROLOL TARTRATE 1 MG/ML VIAL IV STA (04:56)
--- NOTE | 2019-09-04 04:56 | History & Physical Report ---
Date of Service September 04, 2019 Assessment & Plan (1) Acute hypoxemic respiratory failure: Secondary to community-acquired bronchopneumonia No sepsis for now hypertension, elevated secondary illness CRI, creatinine at baseline Hyperglycemia rule out DM past tobacco abuse Medical telemetry Supplemental O2 Solu-Medrol 1 dose for pneumonia causing hypoxemia due to bronchospasm Ceftriaxone, Doxycycline, nebs PRN Check hemoglobin A1c DVT prophylaxis Heparin subcu Full code History of Present Illness Chief Complaint: Cough, shortness of breath Primary Care Provider: Sandra Rm MD History obtained from patient and records. Medical history significant for hypertension, hyperlipidemia, CRI (baseline creatinine 1.2-1.3), past tobacco abuse. Recent confinement 2015 under Orthopedics service for elective back surgery. 1 week history of sinus congestion followed by cough productive of yellow-green sputum, body aches. No known sick contacts. No aspiration. At the ER, O2 sats noted to be in the 80s. Patient received ceftriaxone and azithromycin for pneumonia. Medical History as above Surgical History : Breast lesion excision, section, cholecystectomy, back surgery, appendectomy, heel spur removal, tonsillectomy, cataract surgery Family History : Lung cancer, heart disease, asthma Personal/Social history : Past tobacco abuse, no EtOH intake, retired from factory work Allergies Allergy/AdvReac Type Severity Reaction Status Date / Time No Known Allergies Allergy Unverified 09/04/19 05:22 Home Medications Home Medications Medication Instructions Recorded Confirmed Type azithromycin 250 mg PO UD 09/04/19 09/04/19 History levothyroxine 100 mcg PO DAILY 09/04/19 09/04/19 History lisinopril 10 mg PO DAILY 09/04/19 09/04/19 History lorazepam 1 mg PO HS PRN 09/04/19 09/04/19 History omeprazole 20 mg PO DAILY 09/04/19 09/04/19 History oxybutynin chloride 10 mg PO DAILY 09/04/19 09/04/19 History Past Med/Surg History Medical History CKD (chronic kidney disease), stage III (Chronic) Dyslipidemia (Chronic) HTN (hypertension) (Chronic) Hypothyroidism (Chronic) Left lumbar radiculopathy (Acute) Surgical History S/P appendectomy (Chronic) S/P cholecystectomy (Chronic) S/P tonsillectomy (Chronic) Social History Preferred Language: Norwegian Communication Ability: Effective Film Replacement Orderer Required: No Beliefs That Will Affect Care: None Current Living Situation: Spouse Other Information That Helps Us Care for You: No Feels Safe at Home: Yes Smoking Status: Former smoker Hx Alcohol Use: No Hx Substance Use: No Review of Systems Review of Systems: As per HPI, all 10 systems reviewed, all other ROS negative Physical Exam Physical Exam: GENERAL: Comfortable, slightly hard of hearing, minimal respiratory distress, pleasant, obese SKIN: Normal color, warm HEENT: [place] palpebral conjunctivae, no ptosis, dry buccal mucosa, nasal cannula in place NECK : Supple, no tenderness CHEST : Decreased breath sounds, occasional expiratory wheezes, no tenderness HEART : Tachycardic , no obvious murmurs ABDOMEN: Some distention, nontender EXTREMITIES : No LE swelling/tenderness, no other conspicuous deformities noted NEUROLOGIC : Coherent, no facial asymmetry, slightly hard of hearing, no other gross focality Results & Data Vital Signs (Past 12 Hours) Vital Signs Temp Pulse Pulse Resp BP Pulse Ox 09/04/19 04:39 106 H 24 89 L 09/04/19 03:21 108 H 21 162/85 H 91 09/04/19 03:00 106 H 31 H 186/95 H 93 09/04/19 02:29 105 H 20 91 09/04/19 02:00 105 H 25 H 175/86 H 93 09/04/19 01:46 110 H 17 134/93 90 09/04/19 01:34 37.2 C 111 H 18 159/76 H 92 Laboratory Results Laboratory Results WBC 10.50 K/uL (4.8-10.8) 09/04/19 02:00 RBC 4.15 M/uL (4.2-5.4) L 09/04/19 02:00 Hgb 11.9 g/dL (12.0-16.0) L 09/04/19 02:00 Hct 36.4 % (37-47) L 09/04/19 02:00 MCV 87.7 fL (80-100) 09/04/19 02:00 MCH 28.7 pg (25-34) 09/04/19 02:00 MCHC 32.7 g/dL (32-36) 09/04/19 02:00 RDW Std Deviation 43.4 fL (36.4-46.3) 09/04/19 02:00 RDW Coeff of Amber 13.5 % (11.5-14.5) 09/04/19 02:00 Plt Count 230 K/uL (130-400) 09/04/19 02:00 MPV 10.2 fL (7.4-10.4) 09/04/19 02:00 Immature Gran % (Auto) 0.6 % 09/04/19 02:00 Neut % (Auto) 72.3 % 09/04/19 02:00 Lymph % (Auto) 13.6 % 09/04/19 02:00 Martin % (Auto) 10.9 % 09/04/19 02:00 Eos % (Auto) 2.3 % 09/04/19 02:00 Baso % (Auto) 0.3 % 09/04/19 02:00 Immature Gran # (Auto) 0.06 K/uL (0.00-0.02) H 09/04/19 02:00 Neut # (Auto) 7.60 K/uL (1.4-6.5) H 09/04/19 02:00 Lymph # (Auto) 1.43 K/uL (1.2-3.4) 09/04/19 02:00 Martin # (Auto) 1.14 K/uL (0.11-0.59) H 09/04/19 02:00 Eos # (Auto) 0.24 K/uL (0-0.5) 09/04/19 02:00 Baso # (Auto) 0.03 K/uL (0-0.2) 09/04/19 02:00 ABG pH 7.38 (7.35-7.45) 09/04/19 04:21 ABG pCO2 42 mmHg (35-46) 09/04/19 04:21 ABG pO2 54 mmHg (80-95) L 09/04/19 04:21 ABG HCO3 25 mmol/L (19-24) H 09/04/19 04:21 ABG O2 Saturation 88.4 % (90-95) L 09/04/19 04:21 ABG Base Excess -0.6 mEq/L (-9-1.8) 09/04/19 04:21 Leopoldo Test POS (Pos) 09/04/19 04:21 Barometric Pressure 722.1 mm/Hg 09/04/19 04:21 Oxygen Given ROOM AIR 09/04/19 04:21 Sodium 135 mmol/L (136-145) L 09/04/19 02:00 Potassium 4.0 mmol/L (3.5-5.1) 09/04/19 02:00 Chloride 102 mmol/L (98-107) 09/04/19 02:00 Carbon Dioxide 26 mmol/L (21-32) 09/04/19 02:00 Anion Gap 7.0 (3-11) 09/04/19 02:00 BUN 16 mg/dl (7-18) 09/04/19 02:00 Creatinine 1.28 mg/dl (0.6-1.2) H 09/04/19 02:00 Est Cr Clr Drug Dosing 34.4 ml/min 09/04/19 02:00 Est GFR ( Amer) 47.7 09/04/19 02:00 Est GFR (Non-Af Amer) 41.1 09/04/19 02:00 BUN/Creatinine Ratio 12.6 (10-20) 09/04/19 02:00 Glucose 110 mg/dl (70-99) H 09/04/19 02:00 Lactate 0.8 mmol/L (0.4-2.0) 09/04/19 04:11 Calcium 9.4 mg/dl (8.5-10.1) 09/04/19 02:00 Total Bilirubin 0.4 mg/dl (0.2-1) 09/04/19 02:00 AST 51 U/L (15-37) H 09/04/19 02:00 ALT 40 U/L (12-78) 09/04/19 02:00 Alkaline Phosphatase 168 U/L (45-117) H 09/04/19 02:00 Troponin I < 0.015 ng/ml (0-0.045) 09/04/19 02:00 NT-Pro-B Natriuret Pep 366 pg/ml (0-900) 09/04/19 02:00 Total Protein 7.4 gm/dl (6.4-8.2) 09/04/19 02:00 Albumin 2.9 gm/dl (3.4-5.0) L 09/04/19 02:00 Globulin 4.5 gm/dl (2.5-4.0) H 09/04/19 02:00 Albumin/Globulin Ratio 0.6 (0.9-2) L 09/04/19 02:00 Specimen Hemolysis 09/04/19 02:00 Urine Color Yellow 09/04/19 03:19 Urine Appearance Clear (Clear) 09/04/19 03:19 Urine pH 6.0 (4.5-7.5) 09/04/19 03:19 Ur Specific [place] 1.010 (1.000-1.030) 09/04/19 03:19 Urine Protein 1+ (Negative) H 09/04/19 03:19 Urine Glucose (UA) Negative (Negative) 09/04/19 03:19 Urine Ketones Negative (Negative) 09/04/19 03:19 Urine Blood Trace (Negative) H 09/04/19 03:19 Urine Nitrite Negative (Negative) 09/04/19 03:19 Urine Bilirubin Negative (Negative) 09/04/19 03:19 Urine Urobilinogen Negative (Negative) 09/04/19 03:19 Ur Leukocyte Esterase 2+ (Negative) H 09/04/19 03:19 Urine WBC (Auto) 10-30 /hpf (0-5) H 09/04/19 03:19 Urine RBC (Auto) 0-4 /hpf (0-4) 09/04/19 03:19 U Hyaline Cast (Auto) 0 /lpf (0-5) 09/04/19 03:19 U Epithel Cells (Auto) 10-20 /lpf (0-5) H 09/04/19 03:19 Urine Bacteria (Auto) Negative (Negative) 09/04/19 03:19 Influenza Type A (PCR) Neg for Influ A (Neg) 09/04/19 01:45 Influenza Type B (PCR) Neg for Influ B (Neg) 09/04/19 01:[address] chest initial read: Several focal parenchymal densities in the upper lobes measuring 2.3 cm in lingula and 0.8 cm in right upper lobe. Compatible with infection. Suggest follow-up to confirm resolution. EKG as per my interpretation rate 105, sinus tachycardia, LAD, LAFB, no ischemia, PVCs
[2019-09-04] MEDS ORDERED: ACETAMINOPHEN 325 MG TAB PO PRN (06:30)
[2019-09-04] MEDS ORDERED: PROMETHAZINE HCL 12.5 MG in SODIUM CHLORIDE 0.9% 50 ML IV PRN (06:30)
[2019-09-04] MEDS ORDERED: LORazepam 1 MG TAB PO PRN (06:52)
[2019-09-04] MEDS ORDERED: HYDROCODONE/ACETAMOPHEN 5/325MG TAB PO PRN (06:56)
[2019-09-04] MEDS ORDERED: XOPENEX/ATROVENT 1.25mg/0.5MG NEB COMBO NEB SCH (07:00)
[2019-09-04] MEDS ORDERED: TRAMADOL HCL 50 MG TABLET PO PRN (07:06)
--- NOTE | 2019-09-04 07:14 | CT Scan Report ---
CT angio chest PE protocol CT DOSE: 327.59 mGy.cm HISTORY: 74 years-old Female with PE, pneumonia. Acute shortness breath with reported pneumonia TECHNIQUE: Multiple CTA images of the chest were obtained after the intravenous administration of 93 ml Optiray 320. Coronal and sagittal MIPS were obtained from the axial data set and were submitted f or review. All measurements were obtained according to NASCET criteria. A dose lowering technique wa s utilized adhering to the principles of ALARA. COMPARISON: Chest radiographs 09/04/2019, CT abdomen and pelvis 12/26/2017 and 11/22/2017. FINDINGS: CTA: Mild cardiomegaly. Aortic annular and coronary arterial calcifications are noted. No pericardial effu florentino. Mild to moderate mixed plaque of the thoracic aortic arch. No aneurysm or dissection. Patency o f the imaged great vessels. The pulmonary artery is suboptimally opacified secondary to contrast bolu s timing. Large portion of the bolus is still present within the SVC which causes associated streak a rtifact. No filling defects identified to suggest central pulmonary thromboembolic disease. CT CHEST: No large thyroid nodule. Prominent subcarinal and hilar lymph nodes measure up to 8 mm. No pathologic ally enlarged lymph nodes by CT size criteria. Respiratory motion artifact limits evaluation of the lung parenchyma. Moderate emphysema with bronchi al wall thickening suggestive of bronchitis. Scattered patchy groundglass and nodular consolidative o pacities are noted bilaterally, most pronounced within the lingula where there is an irregular subple ural consolidation measuring 1.6 x 1.2 cm. Central airways appear patent. Cholecystectomy. Hepatic steatosis. No acute process of the imaged upper abdomen. Streak artifact fro m right shoulder total joint arthroplasty with remote ununited fracture of the inferolateral glenoid. Degenerative changes of the spine and left shoulder. 7 mm sclerotic focus involving the T11 vertebra l body is unchanged from 2018 suggestive of a probable bone island. IMPRESSION: 1. Patchy bilateral irregular nodular consolidative and groundglass opacities, most pronounced the li ngula are suggestive of multifocal pneumonia. Follow-up imaging to document complete resolution is re commended. 2. Emphysema with bronchitis. 3. Mildly prominent mediastinal and hilar lymph nodes, likely reactive. 4. No acute aortic pathology or evidence of pulmonary thromboembolic disease. 5. Hepatic steatosis. 6. Right shoulder arthroplasty with chronic appearing ununited fracture of the inferolateral aspect o f the glenoid. 7. Cholecystectomy. ACT 112: Negative or not required by law. The above report was generated using voice recognition software. It may contain grammatical, syntax o r spelling errors. Electronically signed by: James Henley M.D. 09/04/2019 7:13 AM
[2019-09-04] MEDS: LEVALBUTEROL 1.25MG/0.5ML NEB INH SCH ×3 (07:16→19:56)
[2019-09-04] MEDS: IPRATROPIUM BROMIDE NEB SOLN 0.02% 2.5 ML VIAL INH SCH ×3 (07:16→19:56)
--- NOTE | 2019-09-04 07:21 | XRay Report ---
TWO VIEW CHEST CLINICAL HISTORY: Cough and dyspnea. FINDINGS: PA and lateral chest radiographs are compared to study dated 12/02/2017. The heart is mildly enlarged noting atherosclerotic calcification of the thoracic aorta. The pulmonary vasculature is no ncongested. Emphysema and chronic interstitial thickening is similar to previous. Foci of scarring/at electasis are seen at the lung bases. There is no lobar consolidation or pleural effusion. There is n o pneumothorax. The skeletal structures are osteopenic. The bony thorax appears intact. A right shoul leana arthroplasty is in place. Cholecystectomy clips are seen in the right upper quadrant. IMPRESSION: Cardiomegaly and emphysema with no acute cardiopulmonary abnormality. ACT 112: Negative or not required by law. Electronically signed by: Lawson Loco M.D. 09/04/2019 7:20 AM
[2019-09-04] MEDS: HEPARIN SOD 5,000 UNIT/0.5 ML VIAL SQ SCH ×3 (07:35→20:00)
[2019-09-04] MEDS: DOXYCYCLINE HYCLATE 100 MG CAP PO SCH ×2 (07:35→20:01)
[2019-09-04] MEDS: CEROVITE ADV FORMULA TAB PO SCH ×2 (07:35→20:00)
[2019-09-04] MEDS: LEVOTHYROXINE SODIUM 100 MCG TABLET PO SCH (07:35)
[2019-09-04] MEDS: lisinopriL 20 MG TAB PO SCH (07:35)
[2019-09-04] MEDS: OXYBUTYNIN CHLORIDE XL 5 MG TABCR PO SCH (08:29)
[2019-09-04 08:38] LABS: Estimated Average Glucose 120 mg/dl; Hemoglobin A1C 5.8 % (4.5-5.6)
[2019-09-04] MEDS: guaiFENesin 600 MG TABCR PO SCH ×2 (09:50→20:00)
--- NOTE | 2019-09-04 14:19 | Electrocardiogram Report ---
Test Reason : Blood Pressure : / mmHG Vent. Rate : 105 BPM Atrial Rate : 105 BPM P-R Int : 156 ms QRS Dur : 098 ms QT Int : 342 ms P-R-T Axes : 052 -34 064 degrees QTc Int : 452 ms Sinus tachycardia with occasional Premature ventricular complexes and Fusion complexes Left axis deviation Anterior infarct , age undetermined Abnormal ECG When compared with ECG of 02-DEC-2017 16:04, Fusion complexes are now Present Premature ventricular complexes are now Present Confirmed by Chase Huerta ([id number]) on 09/04/2019 2:19:33 PM Referred By: REFERRED SELF Confirmed By:Chase Huerta
--- NOTE | 2019-09-04 18:25 | Communication Note ---
Date of Service: September 04, 2019 Seen resting in bed, comfortable, in good spirits Off oxygen supplementation, saturating well on room air States that she feels improved compared to admission No active dyspnea Still having some dry cough, no chest pain No fevers or chills so far CT chest noted Assessment and plan Acute hypoxic respiratory failure secondary to bilateral pneumonia Patient improving Continue ceftriaxone plus doxycycline, [id number] nebs, transition to prednisone 40 mg then taper starting tomorrow Caden Owusu MD
[2019-09-04] MEDS: MAGNESIUM SULFATE / D5W 1 GM/100 ML BAG IV SCH ×2 (19:57→21:20)
[2019-09-04] MEDS: BENZONATATE 100 MG CAPSULE PO PRN (20:41)
[2019-09-05] MEDS: IPRATROPIUM BROMIDE NEB SOLN 0.02% 2.5 ML VIAL INH SCH ×3 (01:16→13:26)
[2019-09-05] MEDS: LEVALBUTEROL 1.25MG/0.5ML NEB INH SCH ×3 (01:16→13:26)
[2019-09-05] MEDS ORDERED: cefTRIAXone SODIUM 1,000 MG/50 ML BAG IV SCH (04:30)
[2019-09-05] MEDS: HEPARIN SOD 5,000 UNIT/0.5 ML VIAL SQ SCH ×2 (05:05→14:10)
[2019-09-05] MEDS: LEVOTHYROXINE SODIUM 100 MCG TABLET PO SCH (05:06)
--- NOTE | 2019-09-05 05:08 | Emergency Department Note ---
Entered by Edda Redd acting as a scribe for History of Present Illness General Chief complaint: Flu Like Symptoms Stated complaint: SORE THROAT,COUGH,ACHES Time Seen by Provider: 09/04/19 01:40 Source: patient History of Present Illness Provider complaint: cough Onset (ago): day(s) 3 Location: chest Radiation: non-radiation Pain Consistency: + intermittent Relieved By: + none Exacerbated By: + other (sick contact) Associated symptoms: + denies other symptoms, + cough, + fever/chills and + other (sore throat) The patient is a 74 y/o female who presents to the emergency department for evaluation of intermittent cough and fever that began a few days ago. The patient reports that for the past few days she has a cough with yellow/green production as well as fever and chills, congestions, and sore throat. She notes she got a Z-pack from her doctor 2 days ago and has taken 3 pills. The states that the patient has been delirious to the point that he was unable to understand her at points. They report that another family member had the illness first. The patient denies leg swelling, and any other symptoms. No recent travel. Patient states she did get a flu shot. Patient states she quit smoking 30 years ago. Patient did not measure her temperature at home. Patient states decreased appetite but no vomiting or diarrhea. Denies any prior history of pneumonia. Home Medications Home Medications Medication Instructions Recorded Confirmed Type azithromycin 250 mg PO UD 09/04/19 09/04/19 History levothyroxine 100 mcg PO DAILY 09/04/19 09/04/19 History lisinopril 10 mg PO DAILY 09/04/19 09/04/19 History lorazepam 1 mg PO HS PRN 09/04/19 09/04/19 History omeprazole 20 mg PO DAILY 09/04/19 09/04/19 History oxybutynin chloride 10 mg PO DAILY 09/04/19 09/04/19 History Allergies Allergy/AdvReac Type Severity Reaction Status Date / Time No Known Allergies Allergy Unverified 09/04/19 05:22 Past Med/Surg History Medical History CKD (chronic kidney disease), stage III (Chronic) Dyslipidemia (Chronic) HTN (hypertension) (Chronic) Hypothyroidism (Chronic) Left lumbar radiculopathy (Acute) Surgical History S/P appendectomy (Chronic) S/P cholecystectomy (Chronic) S/P tonsillectomy (Chronic) Social History Preferred Language: [place] Communication Ability: Effective Tone Regulator Required: No Beliefs That Will Affect Care: None Current Living Situation: Spouse Other Information That Helps Us Care for You: No Feels Safe at Home: Yes Smoking Status: Former smoker Hx Alcohol Use: No Hx Substance Use: No Review of Systems See HPI for pertinent positives & negatives. and A total of 10 systems reviewed and were otherwise negative Physical Exam Vital Signs Vital Signs - 24 hr 09/04/19 01:34 09/04/19 01:46 09/04/19 02:00 Temperature 99.0 F Temperature Source Oral Pulse Rate 111 H 110 H 105 H Pulse Rate [Right Finger] Pulse Rate from SpO2 Sensor 111 H 104 H Respiratory Rate 18 17 25 H Respiratory Effort / Characteristics Blood Pressure 159/76 H 134/93 175/86 H Blood Pressure Mean 103 102 91 Blood Pressure Position Sitting Pulse Oximetry 92 90 93 Oxygen Delivery Method Room Air Room Air Room Air Sepsis Recent Fever Within 48 Hours No Sepsis New/Unexplained Change in Mental Status No Sepsis Action Taken by Nursing No Action Required 09/04/19 02:29 09/04/19 03:00 09/04/19 03:21 Temperature Temperature Source Pulse Rate 106 H 108 H Pulse Rate [Right Finger] 105 H Pulse Rate from SpO2 Sensor 105 H 108 H Respiratory Rate 20 31 H 21 Respiratory Effort / Characteristics Non-Labored Spontaneous Blood Pressure 186/95 H 162/85 H Blood Pressure Mean 110 109 Blood Pressure Position Pulse Oximetry 91 93 91 Oxygen Delivery Method Room Air Room Air Room Air Sepsis Recent Fever Within 48 Hours Sepsis New/Unexplained Change in Mental Status Sepsis Action Taken by Nursing GENERAL: alert, well appearing, well nourished, no distress, non-toxic EYE EXAM: normal conjunctiva, PERRL and EOM's grossly intact OROPHARYNX: no exudate, no erythema, lips, buccal mucosa, and tongue normal and mucous membranes are moist. Staining of tongue from tobacco use. NECK: supple, no nuchal rigidity, no adenopathy, non-tender LUNGS: Decreased breath sounds no W/R/R HEART: no murmurs, S1 normal and S2 normal ABDOMEN: abdomen soft, non-tender, normo-active bowel sounds, no masses, no rebound or guarding. BACK: Back is symmetrical on inspection and there is no deformity, no midline tenderness, no CVA tenderness. SKIN: no rashes and no bruising, no petechiae UPPER EXTREMITIES: upper extremities are grossly normal. FROM, nml pulses b/l. LOWER EXTREMITIES: No pitting edema. FROM, nml pulses b/l. NEURO EXAM: Normal sensorium, cranial nerves II-XII intact, normal speech, no weakness of arms, no weakness of legs. Course Course 0152: Past medical records reviewed. The patient was evaluated in room C10. A complete history and physical exam was performed. 0420: I checked on the patient and updated her on the results. She is agreeable to admission. On Room air her O2 was 87%. 0431: I spoke with Dr. Laci Cummings Hospitalist. He will evaluate for further management. Administered Medications Benzonatate (Tessalon Perle) 100 mg PO TID PRN PRN Reason: Cough Stop: 10/04/19 19:29 Last Admin: 09/04/19 20:41 Dose: 100 mg Documented by: [id number] Doxycycline Hyclate (Vibramycin) 100 mg PO BID@0700,1900 [facility] Stop: 09/11/19 06:59 Last Admin: 09/04/19 20:01 Dose: 100 mg Documented by: [id number] Admin: 09/04/19 07:35 Dose: 100 mg Documented by: [id number] Guaifenesin (Mucinex) 600 mg PO Q12 [facility] Stop: 10/04/19 08:59 Last Admin: 09/04/19 20:00 Dose: 600 mg Documented by: [id number] Admin: 09/04/19 09:50 Dose: 600 mg Documented by: [id number] Heparin Sodium (Porcine) (Heparin Sodium (Porcine)) 5,000 units SQ Q8 [facility] Stop: 10/04/19 06:29 Last Admin: 09/04/19 20:00 Dose: 5,000 units Documented by: [id number] Cosigned by: [id number] Admin: 09/04/19 12:39 Dose: 5,000 units Documented by: [id number] Cosigned by: [id number] Admin: 09/04/19 07:35 Dose: 5,000 units Documented by: [id number] Cosigned by: [id number] Ceftriaxone Sodium (Rocephin) 1,000 mg in 50 mls @ 100 mls/hr IV Q24H [facility] Stop: 09/12/19 04:29 Last Admin: 09/05/19 04:33 Dose: 100 mls/hr Documented by: [id number] Ipratropium [place] (Atrovent 0.02% 0.5mg/2.5ml) 0.5 mg INH Q6R [facility] Stop: 10/04/19 06:59 Last Admin: 09/05/19 01:16 Dose: 0.5 mg Documented by: [id number] Admin: 09/04/19 19:56 Dose: 0.5 mg Documented by: [id number] Admin: 09/04/19 14:12 Dose: 0.5 mg Documented by: [id number] Admin: 09/04/19 07:16 Dose: 0.5 mg Documented by: [id number] Levalbuterol HCl (Xopenex 1.25mg/0.5ml Neb) 1.25 mg INH Q6R [facility] Stop: 10/04/19 06:59 Last Admin: 09/05/19 01:16 Dose: 1.25 mg Documented by: [id number] Admin: 09/04/19 19:56 Dose: 1.25 mg Documented by: [id number] Admin: 09/04/19 14:12 Dose: 1.25 mg Documented by: [id number] Admin: 09/04/19 07:16 Dose: 1.25 mg Documented by: [id number] Levothyroxine Sodium (Synthroid) 100 mcg PO DAILYBB [facility] Stop: 10/04/19 06:44 Last Admin: 09/04/19 07:35 Dose: 100 mcg Documented by: [id number] Lisinopril (Zestril) 20 mg PO QAM [facility] Stop: 10/04/19 08:59 Last Admin: 09/04/19 07:35 Dose: 20 mg Documented by: [id number] Multivitamins/Minerals (Multivitamin W/ Minerals Tab) 1 tab PO BID [facility] Stop: 10/04/19 08:59 Last Admin: 09/04/19 20:00 Dose: 1 tab Documented by: [id number] Admin: 09/04/19 07:35 Dose: 1 tab Documented by: [id number] Oxybutynin Chloride (Ditropan Xl) 10 mg PO QAM [facility] Stop: 10/04/19 08:59 Last Admin: 09/04/19 08:29 Dose: 10 mg Documented by: [id number] Discontinued Medications Albuterol (Duoneb) 3 ml NEB NOW STA Stop: 09/04/19 02:19 Last Admin: 09/04/19 02:25 Dose: 3 ml Documented by: [id number] Albuterol (Duoneb) 3 ml NEB NOW STA Stop: 09/04/19 04:28 Last Admin: 09/04/19 04:39 Dose: 3 ml Documented by: [id number] Azithromycin (Zithromax) 500 mg PO NOW ONE Stop: 09/04/19 03:59 Last Admin: 09/04/19 04:28 Dose: 500 mg Documented by: [id number] Sodium Chloride (Nss 1000ml) 1,000 mls @ 250 mls/hr IV .Q4H [facility] Stop: 10/04/19 01:59 Last Admin: 09/04/19 07:09 Dose: Not Given Documented by: [id number] Infusion: 09/04/19 07:08 Dose: 0 mls/hr Documented by: [id number] Admin: 09/04/19 02:18 Dose: 250 mls/hr Documented by: [id number] Sodium Chloride (Nss 1000ml) 1,000 mls @ 999 mls/hr IV .Q1H1M ONE Stop: 09/04/19 04:58 Last Infusion: 09/04/19 05:37 Dose: 0 mls/hr Documented by: [id number] Admin: 09/04/19 04:29 Dose: 999 mls/hr Documented by: [id number] Ceftriaxone Sodium (Rocephin) 1,000 mg in 50 mls @ 100 mls/hr IV NOW STA Stop: 09/04/19 04:27 Last Infusion: 09/04/19 05:14 Dose: 0 mls/hr Documented by: [id number] Admin: 09/04/19 04:28 Dose: 100 mls/hr Documented by: [id number] Sodium Chloride (Nss 1000ml) 1,000 mls @ 40 mls/hr IV .Q24H ONE Stop: 09/05/19 06:29 Last Infusion: 09/04/19 19:10 Dose: 0 mls/hr Documented by: [id number] Admin: 09/04/19 07:36 Dose: 40 mls/hr Documented by: [id number] Magnesium Sulfate/Dextrose (Magnesium Sulfate / D5w) 1 gm in 100 mls @ 100 mls/ hr IV Q1H [facility] Stop: 09/04/19 21:29 Last Infusion: 09/04/19 22:36 Dose: 0 mls/hr Documented by: [id number] Admin: 09/04/19 21:20 Dose: 100 mls/hr Documented by: [id number] Infusion: 09/04/19 20:57 Dose: 100 mls/hr Documented by: [id number] Admin: 09/04/19 19:57 Dose: 100 mls/hr Documented by: [id number] Ioversol (Optiray 320 125ml) 125 ml IV ONCE PRN PRN Reason: Interaction Checking Stop: 09/08/19 03:22 Last Admin: 09/04/19 03:24 Dose: 93 ml Documented by: [id number] Methylprednisolone (Solumedrol) 40 mg IV ONE STA Stop: 09/04/19 04:55 Last Admin: 09/04/19 05:23 Dose: 40 mg Documented by: [id number] Metoprolol Tartrate (Lopressor) 2.5 mg IV NOW STA Stop: 09/04/19 04:57 Last Admin: 09/04/19 05:23 Dose: 2.5 mg Documented by: [id number] Medical Decision Making Differential Diagnosis Differential includes viral illness, influenza, streptococcal pharyngitis, meningitis, pneumonia, sinusitis, UTI, pyelonephritis, otitis media. Medical Records Attestation: I reviewed the patient's medical records. Home Medications Current Medication List: was personally reviewed by me Laboratory Data Attestation: I reviewed the patient's lab results. Result diagrams: 09/04/19 02:00 09/04/19 02:00 Lab Results 09/04/19 09/04/19 09/04/19 Range/Units 01:45 02:00 02:00 WBC 10.50 (4.8-10.8) K/uL RBC 4.15 L (4.2-5.4) M/uL Hgb 11.9 L (12.0-16.0) g/dL Hct 36.4 L (37-47) % MCV 87.7 (80-100) fL MCH 28.7 (25-34) pg MCHC 32.7 (32-36) g/dL RDW Std Deviation 43.4 (36.4-46.3) fL RDW Coeff of Amber 13.5 (11.5-14.5) % Plt Count 230 (130-400) K/uL MPV 10.2 (7.4-10.4) fL Immature Gran % (Auto) 0.6 % Neut % (Auto) 72.3 % Lymph % (Auto) 13.6 % [place] % (Auto) 10.9 % Eos % (Auto) 2.3 % Baso % (Auto) 0.3 % Immature Gran # (Auto) 0.06 H (0.00-0.02) K/uL Neut # (Auto) 7.60 H (1.4-6.5) K/uL Lymph # (Auto) 1.43 (1.2-3.4) K/uL [place] # (Auto) 1.14 H (0.11-0.59) K/uL Eos # (Auto) 0.24 (0-0.5) K/uL Baso # (Auto) 0.03 (0-0.2) K/uL ABG pH (7.35-7.45) ABG pCO2 (35-46) mmHg ABG pO2 (80-95) mmHg ABG HCO3 (19-24) mmol/L ABG O2 Saturation (90-95) % ABG Base Excess (-9-1.8) mEq/L Leopoldo Test (Pos) Barometric Pressure mm/Hg Oxygen Given Sodium 135 L (136-145) mmol/L Potassium 4.0 (3.5-5.1) mmol/L Chloride 102 (98-107) mmol/L Carbon Dioxide 26 (21-32) mmol/L Anion Gap 7.0 (3-11) BUN 16 (7-18) mg/dl Creatinine 1.28 H (0.6-1.2) mg/dl Est Cr Clr Drug Dosing 34.4 ml/min Est GFR ( Amer) 47.7 Est GFR (Non-Af Amer) 41.1 BUN/Creatinine Ratio 12.6 (10-20) Glucose 110 H (70-99) mg/dl Estimat Average Glucose mg/dl Hemoglobin A1c (4.5-5.6) % Lactate (0.4-2.0) mmol/L Calcium 9.4 (8.5-10.1) mg/dl Total Bilirubin 0.4 (0.2-1) mg/dl AST 51 H (15-37) U/L ALT 40 (12-78) U/L Alkaline Phosphatase 168 H (45-117) U/L Troponin I < 0.015 (0-0.045) ng/ml NT-Pro-B Natriuret Pep 366 (0-900) pg/ml Total Protein 7.4 (6.4-8.2) gm/dl Albumin 2.9 L (3.4-5.0) gm/dl Globulin 4.5 H (2.5-4.0) gm/dl Albumin/Globulin Ratio 0.6 L (0.9-2) Procalcitonin (0-0.5) ng/ml TSH (0.300-4.500) uIu/ml Specimen Hemolysis Urine Color Urine Appearance (Clear) Urine pH (4.5-7.5) Ur Specific [place] (1.000-1.030) Urine Protein (Negative) Urine Glucose (UA) (Negative) Urine Ketones (Negative) Urine Blood (Negative) Urine Nitrite (Negative) Urine Bilirubin (Negative) Urine Urobilinogen (Negative) Ur Leukocyte Esterase (Negative) Urine WBC (Auto) (0-5) /hpf Urine RBC (Auto) (0-4) /hpf U Hyaline Cast (Auto) (0-5) /lpf U Epithel Cells (Auto) (0-5) /lpf Urine Bacteria (Auto) (Negative) Influenza Type A (PCR) Neg for Influ A (Neg) Influenza Type B (PCR) Neg for Influ B (Neg) 09/04/19 09/04/19 09/04/19 Range/Units 02:00 02:00 03:19 WBC (4.8-10.8) K/uL RBC (4.2-5.4) M/uL Hgb (12.0-16.0) g/dL Hct (37-47) % MCV (80-100) fL MCH (25-34) pg MCHC (32-36) g/dL RDW Std Deviation (36.4-46.3) fL RDW Coeff of Amber (11.5-14.5) % Plt Count (130-400) K/uL MPV (7.4-10.4) fL Immature Gran % (Auto) % Neut % (Auto) % Lymph % (Auto) % [place] % (Auto) % Eos % (Auto) % Baso % (Auto) % Immature Gran # (Auto) (0.00-0.02) K/uL Neut # (Auto) (1.4-6.5) K/uL Lymph # (Auto) (1.2-3.4) K/uL [place] # (Auto) (0.11-0.59) K/uL Eos # (Auto) (0-0.5) K/uL Baso # (Auto) (0-0.2) K/uL ABG pH (7.35-7.45) ABG pCO2 (35-46) mmHg ABG pO2 (80-95) mmHg ABG HCO3 (19-24) mmol/L ABG O2 Saturation (90-95) % ABG Base Excess (-9-1.8) mEq/L Leopoldo Test (Pos) Barometric Pressure mm/Hg Oxygen Given Sodium (136-145) mmol/L Potassium (3.5-5.1) mmol/L Chloride (98-107) mmol/L Carbon Dioxide (21-32) mmol/L Anion Gap (3-11) BUN (7-18) mg/dl Creatinine (0.6-1.2) mg/dl Est Cr Clr Drug Dosing ml/min Est GFR ( Amer) Est GFR (Non-Af Amer) BUN/Creatinine Ratio (10-20) Glucose (70-99) mg/dl Estimat Average Glucose 120 mg/dl Hemoglobin A1c 5.8 H (4.5-5.6) % Lactate (0.4-2.0) mmol/L Calcium (8.5-10.1) mg/dl Total Bilirubin (0.2-1) mg/dl AST (15-37) U/L ALT (12-78) U/L Alkaline Phosphatase (45-117) U/L Troponin I (0-0.045) ng/ml NT-Pro-B Natriuret Pep (0-900) pg/ml Total Protein (6.4-8.2) gm/dl Albumin (3.4-5.0) gm/dl Globulin (2.5-4.0) gm/dl Albumin/Globulin Ratio (0.9-2) Procalcitonin (0-0.5) ng/ml TSH 2.080 (0.300-4.500) uIu/ml Specimen Hemolysis Urine Color Yellow Urine Appearance Clear (Clear) Urine pH 6.0 (4.5-7.5) Ur Specific [place] 1.010 (1.000-1.030) Urine Protein 1+ H (Negative) Urine Glucose (UA) Negative (Negative) Urine Ketones Negative (Negative) Urine Blood Trace H (Negative) Urine Nitrite Negative (Negative) Urine Bilirubin Negative (Negative) Urine Urobilinogen Negative (Negative) Ur Leukocyte Esterase 2+ H (Negative) Urine WBC (Auto) 10-30 H (0-5) /hpf Urine RBC (Auto) 0-4 (0-4) /hpf U Hyaline Cast (Auto) 0 (0-5) /lpf U Epithel Cells (Auto) 10-20 H (0-5) /lpf Urine Bacteria (Auto) Negative (Negative) Influenza Type A (PCR) (Neg) Influenza Type B (PCR) (Neg) 09/04/19 09/04/19 09/04/19 Range/Units 04:11 04:21 04:21 WBC (4.8-10.8) K/uL RBC (4.2-5.4) M/uL Hgb (12.0-16.0) g/dL Hct (37-47) % MCV (80-100) fL MCH (25-34) pg MCHC (32-36) g/dL RDW Std Deviation (36.4-46.3) fL RDW Coeff of Amber (11.5-14.5) % Plt Count (130-400) K/uL MPV (7.4-10.4) fL Immature Gran % (Auto) % Neut % (Auto) % Lymph % (Auto) % [place] % (Auto) % Eos % (Auto) % Baso % (Auto) % Immature Gran # (Auto) (0.00-0.02) K/uL Neut # (Auto) (1.4-6.5) K/uL Lymph # (Auto) (1.2-3.4) K/uL [place] # (Auto) (0.11-0.59) K/uL Eos # (Auto) (0-0.5) K/uL Baso # (Auto) (0-0.2) K/uL ABG pH 7.38 (7.35-7.45) ABG pCO2 42 (35-46) mmHg ABG pO2 54 L (80-95) mmHg ABG HCO3 25 H (19-24) mmol/L ABG O2 Saturation 88.4 L (90-95) % ABG Base Excess -0.6 (-9-1.8) mEq/L Leopoldo Test POS (Pos) Barometric Pressure 722.1 mm/Hg Oxygen Given ROOM AIR Sodium (136-145) mmol/L Potassium (3.5-5.1) mmol/L Chloride (98-107) mmol/L Carbon Dioxide (21-32) mmol/L Anion Gap (3-11) BUN (7-18) mg/dl Creatinine (0.6-1.2) mg/dl Est Cr Clr Drug Dosing ml/min Est GFR ( Amer) Est GFR (Non-Af Amer) BUN/Creatinine Ratio (10-20) Glucose (70-99) mg/dl Estimat Average Glucose mg/dl Hemoglobin A1c (4.5-5.6) % Lactate 0.8 (0.4-2.0) mmol/L Calcium (8.5-10.1) mg/dl Total Bilirubin (0.2-1) mg/dl AST (15-37) U/L ALT (12-78) U/L Alkaline Phosphatase (45-117) U/L Troponin I (0-0.045) ng/ml NT-Pro-B Natriuret Pep (0-900) pg/ml Total Protein (6.4-8.2) gm/dl Albumin (3.4-5.0) gm/dl Globulin (2.5-4.0) gm/dl Albumin/Globulin Ratio (0.9-2) Procalcitonin 0.34 (0-0.5) ng/ml TSH (0.300-4.500) uIu/ml Specimen Hemolysis Urine Color Urine Appearance (Clear) Urine pH (4.5-7.5) Ur Specific [place] (1.000-1.030) Urine Protein (Negative) Urine Glucose (UA) (Negative) Urine Ketones (Negative) Urine Blood (Negative) Urine Nitrite (Negative) Urine Bilirubin (Negative) Urine Urobilinogen (Negative) Ur Leukocyte Esterase (Negative) Urine WBC (Auto) (0-5) /hpf Urine RBC (Auto) (0-4) /hpf U Hyaline Cast (Auto) (0-5) /lpf U Epithel Cells (Auto) (0-5) /lpf Urine Bacteria (Auto) (Negative) Influenza Type A (PCR) (Neg) Influenza Type B (PCR) (Neg) Imaging Data Radiologist's Impression: Radiology results as stated below per my review and the radiologist's interpretation: CTA CHEST: Several focal parenchymal densities in upper lobes, measuring up to 2.3 cm in lingula: 0.8 cm in right upper lobe. These are compatible with infection given history. Suggest follow-up to confirm resolution. Evaluation of lung parenchyma is somewhat limited by motion artifact. No aortic aneurysm or dissection. Mild atherosclerotic calcifications. Evaluation for pulmonary embolism is limited by suboptimal timing of contrast bolus and motion artifact, but there is no evidence of pulmonary embolism. Right shoulder joint replacement. 5 mm sclerotic focus in T11 vertebral body, nonspecific. Mild degenerative changes of thoracic spine. Post-cholecystectomy. Radiologist: Peter Brooks MD ECG Data Attestation: I personally reviewed and interpreted this ECG as follows: Indication: + other (fever and cough) Rate (beats per minute): 105 Rhythm: + sinus tachycardia ECG [place]: + Left axis deviation ECG ST segments: no ST depression and no ST elevation ECG Findings: + PVCs and + Other (normal interval) Blood Pressure Blood Pressure Findings: Elevated blood pressure Blood Pressure Disposition: further management by hospitalist [facility] Narrative Patient presenting here initially concern for flu or flulike illness due to recent sick contact. Patient found to have pneumonia. Given prior initiation of outpatient treatment with azithromycin, patient's likely underlying COPD, and persistent hypoxia here despite additional treatments, discussed with patient additional inpatient management. She was in agreement. We did discuss all results at bedside. I do not suspect ACS, CHF, PE, pericardial effusion. No evidence at this time for bacteremia/sepsis. Patient was maintained on additional nasal cannula. Patient was given nebulizer treatments while here. No recent hospitalization, patient started on community-acquired pneumonia antibiotics. Case discussed with hospitalist for additional evaluation and management. Impression & Plan Dyspnea, Fever, Pneumonia, Hypoxia Discharge Plan Visit Data *Final* Discharge Date/Time: 09/04/19 05:36 Chief Complaint: Flu Like Symptoms Stated Complaint: SORE THROAT,COUGH,ACHES ED Provider: Rebeca Pacheco Discharge Problem: Dyspnea, Fever, Pneumonia, Hypoxia Patient Disposition: Admitted As Inpatient Discharge Instructions Interventions: ED Discharge Assessment Last Done: 09/04/19 05:36 Discharge Problem: Dyspnea Qualifiers: Dyspnea type: unspecified Qualified Code(s): R06.00 - Dyspnea, unspecified Fever Qualifiers: Fever type: unspecified Qualified Code(s): R50.9 - Fever, unspecified Pneumonia Qualifiers: Pneumonia type: due to unspecified organism Laterality: bilateral Lung location: unspecified part of lung Qualified Code(s): J18.9 - Pneumonia, unspecified organism The scribe's documentation has been prepared under my direction and personally reviewed by me in its entirety. I confirm that the note above accurately reflects all work, treatment, procedures, and medical decision making performed by me.
[2019-09-05 06:22] LABS: Basophils # (auto) 0.03 K/uL (0-0.2); Basophils % (auto) 0.3 %; Eosinophils # (auto) 0.01 K/uL (0-0.5); Eosinophils % (auto) 0.1 %; Hematocrit (blood only) 30.3 % (37-47); Hemoglobin 9.8 g/dL (12.0-16.0); Immature Granulocytes # (auto) 0.25 K/uL (0.00-0.02); Immature Granulocytes % (auto) 2.2 %; Lymphocytes # (auto) 1.97 K/uL (1.2-3.4); Mean Corpuscular Hgb Conc 32.3 g/dL (32-36); Mean Corpuscular Volume 86.6 fL (80-100); Mean Platelet Volume 9.7 fL (7.4-10.4); Monocytes # (auto) 0.98 K/uL (0.11-0.59); Monocytes % (auto) 8.5 %; Neutrophils # (auto) 8.33 K/uL (1.4-6.5); Neutrophils % (auto) 71.9 %; Platelet Count 268 K/uL (130-400); RDW Coefficient of Variation 13.9 % (11.5-14.5); White Blood Count 11.57 K/uL (4.8-10.8)
[2019-09-05 06:51] LABS: BUN Creatinine Ratio 18.2 (10-20); Calcium 9.7 mg/dl (8.5-10.1); Creatinine Clr Calc Pharmacy 33.5 ml/min; Est GFR (African American) 45.5; Est GFR (Non-African American) 39.3; Potassium 4.1 mmol/L (3.5-5.1)
[2019-09-05] MEDS: DOXYCYCLINE HYCLATE 100 MG CAP PO SCH (07:31)
[2019-09-05] MEDS: CEROVITE ADV FORMULA TAB PO SCH (07:33)
[2019-09-05] MEDS: guaiFENesin 600 MG TABCR PO SCH (07:33)
[2019-09-05] MEDS: BENZONATATE 100 MG CAPSULE PO PRN ×2 (07:33→14:07)
[2019-09-05] MEDS: lisinopriL 20 MG TAB PO SCH (07:34)
[2019-09-05] MEDS: OXYBUTYNIN CHLORIDE XL 5 MG TABCR PO SCH (07:34)
[2019-09-05] MEDS ORDERED: predniSONE 20 MG TAB PO SCH (09:00)
--- NOTE | 2019-09-05 14:31 | Hospitalist Progress Note ---
Date of Service September 05, 2019 Assessment & Plan (1) Acute hypoxemic respiratory failure: (1) Acute hypoxemic respiratory failure: Secondary to community-acquired bronchopneumonia --CT chest: 1. Patchy bilateral irregular nodular consolidative and groundglass opacities, most pronounced the lingula are suggestive of multifocal pneumonia. Follow-up imaging to document complete resolution is recommended. 2. Emphysema with bronchitis. 3. Mildly prominent mediastinal and hilar lymph nodes, likely reactive. 4. No acute aortic pathology or evidence of pulmonary thromboembolic disease. 5. Hepatic steatosis. 6. 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 7. Cholecystectomy. --Patient was given ceftriaxone and doxycycline, scheduled nebulized bronchodilators, prednisone 40 mg daily --Blood cultures: Negative x24 hours, please follow-up --Patient significantly improved, remained afebrile, weaned off oxygen supplementation Wheezing and rhonchi have resolved --Discharge plan: Augmentin 2 g p.o. every 12 hours x1 week Finish course of azithromycin as previously prescribed by Dr. Rm, 3 more days left Probiotics times at least 2 weeks Xopenex and ipratropium nebulizations 3 times daily and every 4 hours as needed for at least 1 week Prednisone 20 mg p.o. daily x3 days Repeat CT chest to document complete resolution 3 to 4 weeks Hypertension --Likely from stress --Resolved CRI, creatinine at baseline Prediabetes --A1c 5.8 --Monitor and follow-up as an outpatient Disposition Discharge to home today Follow-up with primary care physician within 1 week Admission and Anticipated Discharge Date Admission Date: September 04, 2019 Subjective Follow-up for multifocal pneumonia Seen sitting up in bed side chair, comfortable, in good spirits States she feels much better overall today shortness of breath has resolved Coughing less, able to expectorate more phlegm Denies fevers or chills No chest pain, dizziness, abdominal pain, nausea vomiting States she is ready and would like to be discharged today Review of Systems Review of Systems: All systems reviewed & are unremarkable except as noted in HPI & below Physical Exam Physical Exam: General- oriented x 3, not in distress, speaks in sentences with no effort or accessory muscle use Eyes- anicteric Neck- no JVD Lungs- clear breath sounds bilaterally, no rales/wheezes Heart- normal rate, regular rhythm; no murmurs Abdomen- normal bowel sounds, nondistended, soft, nontender Extremities- no pretibial edema, no calf tenderness Neuro- alert, oriented x 3; no gross focal neurologic deficits Skin- warm & dry Results & Data ([facility]) Vital Signs (Past 12 Hours) Vital Signs Temp Pulse Resp BP BP Pulse Ox 09/05/19 13:26 91 H 16 95 09/05/19 07:33 36.8 C 78 16 139/77 92 09/05/19 07:09 74 18 96 09/05/19 05:04 36.7 C 75 18 138/75 94 09/05/19 03:38 36.7 C 79 20 142/81 H 95 Laboratory Results Laboratory Results - last 24 hr 09/05/19 09/05/19 06:07 06:07 WBC 11.57 H RBC 3.50 L Hgb 9.8 L Hct 30.3 L MCV 86.6 MCH 28.0 MCHC 32.3 RDW Std Deviation 44.0 RDW Coeff of Amber 13.9 Plt Count 268 MPV 9.7 Immature Gran % (Auto) 2.2 Neut % (Auto) 71.9 Lymph % (Auto) 17.0 [place] % (Auto) 8.5 Eos % (Auto) 0.1 Baso % (Auto) 0.3 Immature Gran # (Auto) 0.25 H Neut # (Auto) 8.33 H Lymph # (Auto) 1.97 [place] # (Auto) 0.98 H Eos # (Auto) 0.01 Baso # (Auto) 0.03 Sodium 139 Potassium 4.1 Chloride 107 Carbon Dioxide 26 Anion Gap 6.0 BUN 24 H Creatinine 1.33 H Est Cr Clr Drug Dosing 33.5 Est GFR ( Amer) 45.5 Est GFR (Non-Af Amer) 39.3 BUN/Creatinine Ratio 18.2 Glucose 107 H Calcium 9.7
--- NOTE | 2019-09-05 14:59 | Discharge Summary ---
Date of Service September 05, 2019 Admission HPI Per Admitting Provider History obtained from patient and records. Medical history significant for hypertension, hyperlipidemia, CRI (baseline creatinine 1.2-1.3), past tobacco abuse. Recent confinement 2016 under Orthopedics service for elective back surgery. 1 week history of sinus congestion followed by cough productive of yellow-green sputum, body aches. No known sick contacts. No aspiration. At the ER, O2 sats noted to be in the 80s. Patient received ceftriaxone and azithromycin for pneumonia. Medical History as above Surgical History : Breast lesion excision, section, cholecystectomy, back surgery, appendectomy, heel spur removal, tonsillectomy, cataract surgery Family History : Lung cancer, heart disease, asthma Personal/Social history : Past tobacco abuse, no EtOH intake, retired from factory work Discharge Data Allergies Allergy/AdvReac Type Severity Reaction Status Date / Time No Known Allergies Allergy Unverified 09/04/19 05:22 Consultations 09/04/19 04:33 ED Decision to Admit Stat 09/04/19 06:30 Consult Case Management - Discharge Planning Routine Ordered Studies 09/04/19 02:57 CT angio chest PE protocol Urgent Hospital Course (1) Acute hypoxemic respiratory failure: (1) Acute hypoxemic respiratory failure: Secondary to community-acquired bronchopneumonia --CT chest: 1. Patchy bilateral irregular nodular consolidative and groundglass opacities, most pronounced the lingula are suggestive of multifocal pneumonia. Follow-up imaging to document complete resolution is recommended. 2. Emphysema with bronchitis. 3. Mildly prominent mediastinal and hilar lymph nodes, likely reactive. 4. No acute aortic pathology or evidence of pulmonary thromboembolic disease. 5. Hepatic steatosis. 6. 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 7. Cholecystectomy. --Patient was given ceftriaxone and doxycycline, scheduled nebulized bronchodilators, prednisone 40 mg daily --Blood cultures: Negative x24 hours, please follow-up --Patient significantly improved, remained afebrile, weaned off oxygen sup plementation Wheezing and rhonchi have resolved --Discharge plan: Augmentin 2 g p.o. every 12 hours x1 week Finish course of azithromycin as previously prescribed by Dr. Rm, 3 more days left Probiotics times at least 2 weeks Xopenex and ipratropium nebulizations 3 times daily and every 4 hours as needed for at least 1 week Prednisone 20 mg p.o. daily x3 days Repeat CT chest to document complete resolution 3 to 4 weeks Hypertension --Lisinopril increased from 20 to 40mg po daily -- monitor BP as outpatient monitor crea CRI, creatinine at baseline Prediabetes --A1c 5.8 --Monitor and follow-up as an outpatient Disposition Discharge to home today Follow-up with primary care physician within 1 week Discharge Plan Discharge Items Patient Disposition: Home - Self-Care Reason For Visit: RESP FAILURE Discharge Diagnosis: PNEUMONIA ON BOTH SIDES OF THE LUNGS, LOW OXYGEN LEVEL Activity: As commented below Activity Comment: No heavy exertion, resume activity gradually as tolerated Lifting: Wait until after follow-up appointment Exercise/Sports: Wait until after follow-up appointment Driving/Machine Use: No driving until reevaluated and allowed by primary care physician Non-emergency contact: Primary Care Provider Call non-emergency contact if: you have any medication questions and your symp toms worsen Follow-up/Referrals: Sandra Rm MD [Primary Care Provider] - 09/10/19 11:05 am (Follow up with Dr Huynh Sunday 09/10 2 1105. Please arrive 15 minutes prior to appt time. If this appt does not fit your schedule please call [phone] to reschedule. [address] [place] [address] Dr Campos) Diet: Heart Healthy Addtl Attending Provider Instructions: Please review new medication list and follow instructions carefully. Your new medications are: Augmentin-antibiotic for pneumonia Azithromycin-antibiotic for pneumonia Prednisone-steroid to help with breathing Xopenex and Atrovent-breathing treatments Take probiotics for at least 2 weeks. Call primary care physician or return to the ER immediately if with recurrence or worsening of symptoms. Call primary care physician immediately if you are having diarrhea. Drink plenty of fluids. Please follow-up with Dr. Rm next week as outlined above. Pending Studies at Discharge: Yes Studies:: Repeat CT scan of the chest in 3-4 weeks c/o Primary Care Physician Stand-Alone Forms: My [employer], Smoking Cessation Medications and DC Order Prescriptions: New ipratropium bromide 0.02 % Solution 0.5 mg inhalation TID 7 Days Qty: 52.5 RF: 2 levalbuterol HCl 1.25 mg/0.5 mL Solution For Nebulization 1.25 mg inhalation TID 7 Days Qty: 10.5 RF: 2 lisinopril 20 mg Tablet 20 mg PO QAM 30 Days Qty: 30 RF: 2 prednisone 20 mg tablet 20 mg PO DAILY 3 Days Qty: 3 RF: 0 benzonatate [Tessalon Perles] 100 mg Capsule 100 mg PO TID PRN (Reason: cough) 7 Days Qty: 20 RF: 0 guaifenesin [Mucinex] 600 mg Tablet Extended Release 12hr 600 mg PO Q12 5 Days Qty: 10 RF: 0 amoxicillin-pot clavulanate [Augmentin XR] 1,000-62.5 mg tablet extended release 12 hr 2 tab PO Q12H 5 Days Qty: 20 RF: 0 [employer] [employer] [employer] 10 billion cell -200 mg capsule 1 cap PO DAILY 30 Days Qty: 30 RF: 2 Continued oxybutynin chloride 10 mg tablet extended release 24hr 10 mg PO DAILY RF: 0 levothyroxine 100 mcg tablet 100 mcg PO DAILY RF: 0 omeprazole 20 mg capsule,delayed release(DR/EC) 20 mg PO DAILY RF: 0 lorazepam 1 mg tablet 1 mg PO HS PRN (Reason: Sleep) RF: 0 Changed azithromycin 250 mg tablet 250 mg PO DAILY 3 Days Qty: 0 RF: 0 Discontinued lisinopril 10 mg tablet 10 mg PO DAILY RF: 0 Discharge Orders: Discharge Order (Routine); Ordered 09/05/19 Ordered By: Caden Owusu Admission Data Admit Date/Time: 09/04/19 05:01 Attending Provider: Caden Owusu Admit Provider: Sahhzad Burgess Primary Care Provider: Sandra Rm Other Providers: Shahzad Burgess
== END 2019-09-05 17:25 | disposition home or self-care (01) | DRG 193 ==
LOC: ED 01:25 → 2N 05:01 → 4W 09-05 04:23